=== PATIENT | male | born 1960 | race Caucasian/White ===

== ENCOUNTER 2017-01-30 16:14 | Inpatient (IN) | payer BC, MEDICAID, OTHER ==
[2017-01-30] MEDS ORDERED: Ketorolac 30 MG/ML SDV IVPUSH ONE (16:24)
[2017-01-30] MEDS ORDERED: Sodium Chloride 0.9% 1,000 ML IV ONE (16:24)
[2017-01-30] MEDS ORDERED: Ondansetron 4 MG/2 ML SDV IVPUSH ONE (16:24)
--- NOTE | 2017-01-30 16:40 | EDM.PDOC ---
<Alfred Reddy - Last Filed: 01/30/17 18:37> ED HPI GENERAL MEDICAL PROBLEM - General Chief Complaint: General Stated Complaint: PT HAS BACK PAIN Time Seen by Provider: 01/30/17 16:15 Source of Information: Reports: Patient History Limitations: Reports: No Limitations - History of Present Illness INITIAL COMMENTS - FREE TEXT/NARRATIVE: History of present illness: [56-year-old male settings with complaints of swelling to his back. 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 Past medical history: As per history of present illness and as reviewed below otherwise noncontributory. Surgical history: As per history of present illness and as reviewed below otherwise noncontributory. Social history: No reported history of drug or alcohol abuse. Family history: As per history of present illness and as reviewed below otherwise noncontributory. Physical exam: HEENT: Atraumatic, normocephalic, pupils reactive, negative for conjunctival pallor or scleral icterus, mucous membranes moist, throat clear, neck supple, nontender, trachea midline. Lungs: Coarse throughout on inspiration and expiration and tachypneic,, posterior aspect of chest wall tender along the suture line that is well-healed but without obvious swelling. Heart: S1S2, regular, negative for clicks, rubs, or JVD. Abdomen: Soft, nondistended, nontender. Negative for masses or hepatosplenomegaly. Negative for costovertebral tenderness. Pelvis: Stable nontender. Genitourinary: Deferred. Rectal: Deferred. Extremities: Atraumatic, negative for cords or calf pain. Neurovascular unremarkable. Neuro: Awake, alert, oriented. Cranial nerves II through XII unremarkable. Cerebellum unremarkable. Motor and sensory unremarkable throughout. Exam nonfocal. Patient is pleasant cooperative but somewhat cachectic Dr. [place] in ED to evaluate the patient and decision made that patient could be seen and treated here. Diagnostics: [Chest x-ray, CBC, CMP, lactic acid, blood culture, amylase, lipase, CTA] Therapeutics: [IV fluid, Zosyn] Impression: [Urinary infection, leukocytosis, cancer] Plan: [Admit] Definitive disposition and diagnosis as appropriate pending reevaluation and review of above. Right Upper Back Pain Score (Numeric/FACES): 6 - Related Data Allergies Allergy/AdvReac Type Severity Reaction Status Date / Time No Known Allergies Allergy Verified 01/30/17 16:21 Home Meds: Home Meds amLODIPine [Norvasc] 5 mg PO DAILY 04/26/14 [History] atorvaSTATin Calcium [Atorvastatin Calcium] 10 mg PO DAILY 04/26/14 [History] Aspirin 325 mg PO DAILY 05/27/16 [History] Acetaminophen [Tylenol] 500 mg PO ASDIRECTED 01/30/17 [History] Benzonatate PRN 01/30/17 [History] Calcium Carbonate [Tums] 01/30/17 [History] Calcium Carbonate/Vitamin D3 [Calcium 600-Vit D3 800 Tab] 1 tab PO DAILY [History] Docusate Sodium [Colace] 1 cap PO ASDIRECTED 01/30/17 [History] Dronabinol 5 cap PO DAILY 01/30/17 [History] Ferrous Sulfate, Dried [Iron] 65 mg PO BID 01/30/17 [History] Ondansetron HCl [Zofran] 8 mg PO Q6HR PRN 01/30/17 [History] Polyethylene Glycol 3350 [MiraLAX] 17 gm PO DAILY PRN 01/30/17 [History] Pregabalin [Lyrica] 75 mg PO BID 01/30/17 [History] Prochlorperazine [Compazine] 10 mg PO TID PRN 01/30/17 [History] oxyCODONE 5 mg PO Q3HR PRN 01/30/17 [History] oxyCODONE HCl [Oxycontin] 20 mg PO Q12HR 01/30/17 [History] Levofloxacin/Dextrose 5%-Water [Levaquin in D5W 750 MG/150 ML] 750 mg IV Q24H bag 01/31/17 [Rx] Pantoprazole [ProTONIX IV] 40 mg IVPUSH Q12H vial 01/31/17 [Rx] Sodium Chloride 0.9% [Normal Saline] 125 ml IV ASDIRECTED #0 bag 01/31/17 [Rx] Vancomycin [Vancocin] 1 gm IV Q8H adv 01/31/17 [Rx] Past Medical History HEENT History: Reports: Other (See Below) Other HEENT History: wears glasses Cardiovascular History: Reports: High Cholesterol, Hypertension, PVD, Other ( See Below) Respiratory History: Reports: Other (See Below) Other Respiratory History: 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) Gastrointestinal History: Reports: None Genitourinary History: Reports: None Musculoskeletal History: Reports: Fracture, Other (See Below) Other Musculoskeletal History: cracked bone in right wrist Neurological History: Reports: CVA, Other (See Below) Other Neuro History: stroke 3 yrs ago, peripheral vascular disease Psychiatric History: Reports: None Endocrine/Metabolic History: Reports: None Hematologic History: Reports: None Immunologic History: Reports: None Oncologic (Cancer) History: Reports: Lung Dermatologic History: Reports: None - Infectious Disease History Infectious Disease History: Reports: Chicken Pox, Mumps - Past Surgical History Cardiovascular Surgical History: Reports: Carotid Endarterectomy Musculoskeletal Surgical History: Reports: Carpal Tunnel Social & Family History - Family History Cardiac: Reports: Heart Failure Musculoskeletal: Reports: RA Endocrine/Metabolic: Reports: Other (See Below) Other Endocrine/Metabolic Family History: diabetes, type unknown Oncologic: Reports: Esophageal - Tobacco Use Smoking Status *Q: Current Some Day Smoker Years of Tobacco use: 40 Packs/Tins Daily: 1 Second Hand Smoke Exposure: Yes - Caffeine Use Caffeine Use: Reports: Soda - Alcohol Use Days Per Week of Alcohol Use: 5 Number of Drinks Per Day: 4 Total Drinks Per Week: 20 - Recreational Drug Use Recreational Drug Use: No Recreational Drug Type: Reports: Marijuana/Hashish Recreational Drug Use Frequency: Socially ED ROS GENERAL - Review of Systems Review Of Systems: See Below (See history of present illness) ED EXAM, GENERAL - Physical Exam Exam: See Below (See history of present illness) Course - Vital Signs Last Recorded V/S: Last Vital Signs Temp 37.2 C 01/31/17 11:22 Pulse 112 H 01/31/17 11:22 Resp 21 H 01/31/17 11:22 BP 111/66 01/31/17 11:22 Pulse Ox 98 01/31/17 11:22 - Orders/Labs/Meds Orders: Active Orders 24 hr Category Date Time Status Patient Status [ADT] Stat ADT 01/30/17 18:42 Active Ang Chest [CT] Stat Exams 01/30/17 17:55 Stop Req CULTURE BLOOD [BC] Stat Lab 01/30/17 17:46 Received CULTURE BLOOD [BC] Stat Lab 01/30/17 17:52 Received Blood Culture x2 Reflex Set [OM.PC] Stat Oth 01/30/17 17:38 Ordered Medication Orders Acetaminophen (Tylenol Extra Strength) 500 mg PO TID PRN PRN Reason: PAIN Acetaminophen (Tylenol) 650 mg PO Q6H PRN PRN Reason: Fever Last Admin: 01/31/17 10:46 Dose: 650 mg Admin: 01/31/17 01:19 Dose: 650 mg Albuterol (Proventil Neb Soln) 2.5 mg NEB Q2H PRN PRN Reason: Shortness Of Breath/wheezing Amlodipine Besylate (Norvasc) 5 mg PO DAILY COUNT INCLUDES THE [facility] Last Admin: 01/31/17 10:12 Dose: Aspirin (Aspirin) 325 mg PO DAILY COUNT INCLUDES THE [facility] Last Admin: 01/31/17 10:10 Dose: Atorvastatin Calcium (Lipitor) 10 mg PO DAILY COUNT INCLUDES THE [facility] Last Admin: 01/31/17 10:12 Dose: Calcium Carbonate (Caltrate 600+D 1500 Mg-400 Units) 1 tab PO DAILY COUNT INCLUDES THE [facility] Last Admin: 01/31/17 10:11 Dose: Docusate Sodium (Colace) 300 mg PO DAILY PRN PRN Reason: Constipation Dronabinol (Marinol) 5 mg PO DAILY COUNT INCLUDES THE [facility] Last Admin: 01/31/17 10:12 Dose: Enoxaparin Sodium (Lovenox) 40 mg SUBCUT DAILY COUNT INCLUDES THE [facility] Last Admin: 01/31/17 10:11 Dose: Admin: 01/30/17 20:12 Dose: 40 mg Ferrous Sulfate (Ferrous Sulfate) 325 mg PO BID COUNT INCLUDES THE [facility] Last Admin: 01/31/17 10:11 Dose: Admin: 01/30/17 20:12 Dose: 325 mg Hydromorphone HCl (Dilaudid) 1 mg IVPUSH Q3H PRN PRN Reason: Pain Last Admin: 01/31/17 09:30 Dose: 1 mg Admin: 01/31/17 05:20 Dose: 1 mg Levofloxacin/Dextrose 750 mg/ (Premix) 150 mls @ 100 mls/hr IV Q24H COUNT INCLUDES THE [facility] Last Admin: 01/30/17 20:12 Dose: 100 mls/hr Piperacillin Sod/Tazobactam (Sod 3.375 gm/ Sodium Chloride) 50 mls @ 100 mls/ hr IV Q6H COUNT INCLUDES THE [facility] Last Admin: 01/31/17 06:43 Dose: 100 mls/hr Infusion: 01/31/17 01:21 Dose: 100 mls/hr Admin: 01/31/17 00:51 Dose: 100 mls/hr Vancomycin HCl 1 gm/ Sodium (Chloride) 250 mls @ 166 mls/hr IV Q8H COUNT INCLUDES THE [facility] Last Admin: 01/31/17 05:23 Dose: 166 mls/hr Infusion: 01/31/17 00:48 Dose: 166 mls/hr Admin: 01/30/17 23:17 Dose: 166 mls/hr Sodium Chloride (Normal Saline) 1,000 mls @ 125 mls/hr IV ASDIRECTED COUNT INCLUDES THE [facility] Last Admin: 01/31/17 10:22 Dose: 125 mls/hr Infusion: 01/31/17 10:14 Dose: 125 mls/hr Admin: 01/31/17 02:14 Dose: 125 mls/hr Infusion: 01/31/17 02:14 Dose: 125 mls/hr Admin: 01/30/17 20:13 Dose: 125 mls/hr Pantoprazole Sodium 40 mg/ (Sodium Chloride) 10 mls @ 300 mls/hr IVPUSH Q12H COUNT INCLUDES THE [facility] Last Admin: 01/31/17 09:47 Dose: 300 mls/hr Infusion: 01/30/17 21:02 Dose: 300 mls/hr Admin: 01/30/17 21:00 Dose: 300 mls/hr Ondansetron HCl (Zofran Odt) 4 mg PO Q4H PRN PRN Reason: nausea, able to take PO Oxycodone HCl (Oxycontin) 20 mg PO Q12HR COUNT INCLUDES THE [facility] Last Admin: 01/31/17 10:12 Dose: Admin: 01/30/17 20:12 Dose: 20 mg Oxycodone HCl (Oxycodone) 5 mg PO Q3HR PRN PRN Reason: Pain Last Admin: 01/31/17 06:42 Dose: 5 mg Admin: 01/31/17 03:23 Dose: 5 mg Polyethylene Glycol (Miralax) 17 gm PO DAILY COUNT INCLUDES THE [facility] Pregabalin (Lyrica) 75 mg PO BID COUNT INCLUDES THE [facility] Last Admin: 01/31/17 10:12 Dose: Prochlorperazine Maleate (Compazine) 10 mg PO TID PRN PRN Reason: Nausea Vancomycin HCl (Pharmacy To Dose - Vancomycin) 1 dose .XX ASDIRECTED COUNT INCLUDES THE [facility] Zaleplon (Sonata) 10 mg PO BEDTIME CARTER Last Admin: 01/30/17 21:01 Dose: 10 mg Labs: Laboratory Tests 01/30/17 01/30/17 01/30/17 Range/Units 16:50 16:50 16:50 WBC 23.31 H (4.0-11.0) K/uL RBC 3.08 L (4.50-5.90) M/uL Hgb 7.8 L (13.0-17.0) g/dL Hct 24.2 L (38.0-50.0) % MCV 78.6 L (80.0-98.0) fL MCH 25.3 L (27.0-32.0) pg MCHC 32.2 (31.0-37.0) g/dL RDW Std Deviation 53.9 (28.0-62.0) fl RDW Coeff of An 19 H (11.0-15.0) % Plt Count 401 H (150-400) K/uL MPV 8.50 (7.40-12.00) fL Add Manual Diff YES Neutrophils % (Manual) 76 (48.0-80.0) % Band Neutrophils % 15 % Lymphocytes % (Manual) 6 L (16.0-40.0) % Monocytes % (Manual) 3 (0.0-15.0) % Nucleated RBC % 0.0 /100WBC Absolute Seg Neuts 17.7 Band Neutrophils # 3.5 Lymphocytes # (Manual) 1.4 Monocytes # (Manual) 0.7 Nucleated RBCs # 0 K/uL Absolute Retic (20-80) K/uL Percent Retic (0.5-1.5) % Immature Retic Fraction % Lactate 2.1 H (0.20-2.00) mmol/L Sodium 126 L (136-146) mmol/L Potassium 3.6 (3.5-5.1) mmol/L Chloride 87 L (98-110) mmol/L Carbon Dioxide 27 (21-31) mmol/L BUN 8 (6.0-23.0) mg/dL Creatinine 0.6 (0.6-1.5) mg/dL Est Cr Clr Drug Dosing 111.07 mL/min Estimated GFR (MDRD) > 60.0 ml/min Glucose 151 H (60-110) mg/dL Calcium 8.2 L (8.8-10.8) mg/dL Iron (50-170) ug/dL TIBC (273-456) ug/dL % Saturation (20-55) % Total Bilirubin 0.6 (0.1-1.5) mg/dL AST 56 H (5-40) IU/L ALT 52 (8-54) IU/L Alkaline Phosphatase 404 H (40-150) Total Protein 6.3 (6.0-8.0) g/dL Albumin 2.8 L (3.5-5.0) g/dL Globulin 3.5 (2.0-3.5) g/dL Albumin/Globulin Ratio 0.8 L (1.3-2.8) Amylase 17 (10-90) U/L Lipase 8 (7-80) U/L 01/30/17 01/30/17 Range/Units 16:50 16:50 WBC (4.0-11.0) K/uL RBC 3.02 L (4.50-5.90) M/uL Hgb (13.0-17.0) g/dL Hct (38.0-50.0) % MCV (80.0-98.0) fL MCH (27.0-32.0) pg MCHC (31.0-37.0) g/dL RDW Std Deviation (28.0-62.0) fl RDW Coeff of An (11.0-15.0) % Plt Count (150-400) K/uL MPV (7.40-12.00) fL Add Manual Diff Neutrophils % (Manual) (48.0-80.0) % Band Neutrophils % % Lymphocytes % (Manual) (16.0-40.0) % Monocytes % (Manual) (0.0-15.0) % Nucleated RBC % /100WBC Absolute Seg Neuts Band Neutrophils # Lymphocytes # (Manual) Monocytes # (Manual) Nucleated RBCs # K/uL Absolute Retic 53.20 (20-80) K/uL Percent Retic 1.8 H (0.5-1.5) % Immature Retic Fraction 12 % Lactate (0.20-2.00) mmol/L Sodium (136-146) mmol/L Potassium (3.5-5.1) mmol/L Chloride (98-110) mmol/L Carbon Dioxide (21-31) mmol/L BUN (6.0-23.0) mg/dL Creatinine (0.6-1.5) mg/dL Est Cr Clr Drug Dosing mL/min Estimated GFR (MDRD) ml/min Glucose (60-110) mg/dL Calcium (8.8-10.8) mg/dL Iron 13 L (50-170) ug/dL TIBC 135 L (273-456) ug/dL % Saturation 9.63 L (20-55) % Total Bilirubin (0.1-1.5) mg/dL AST (5-40) IU/L ALT (8-54) IU/L Alkaline Phosphatase (40-150) Total Protein (6.0-8.0) g/dL Albumin (3.5-5.0) g/dL Globulin (2.0-3.5) g/dL Albumin/Globulin Ratio (1.3-2.8) Amylase (10-90) U/L Lipase (7-80) U/L Meds: Medications Generic Name Dose Route Start Last Admin Trade Name Freq PRN Reason Stop Dose Admin Acetaminophen 500 mg 01/31/17 14:00 Tylenol Extra Strength PO TID PRN PAIN Acetaminophen 650 mg 01/31/17 00:34 01/31/17 10:46 Tylenol PO 650 mg Q6H PRN Administration Fever Albuterol 2.5 mg 01/30/17 18:53 Proventil Neb Soln NEB Q2H PRN Shortness Of Breath/wheezing Amlodipine Besylate 5 mg 01/31/17 09:00 01/31/17 10:12 Norvasc PO Not Given DAILY COUNT INCLUDES THE [facility] Aspirin 325 mg 01/31/17 09:00 01/31/17 10:10 Aspirin PO Not Given DAILY COUNT INCLUDES THE [facility] Atorvastatin Calcium 10 mg 01/31/17 09:00 01/31/17 10:12 Lipitor PO Not Given DAILY COUNT INCLUDES THE [facility] Calcium Carbonate 1 tab 01/31/17 09:00 01/31/17 10:11 Caltrate 600+D 1500 Mg-400 Units PO Not Given DAILY COUNT INCLUDES THE [facility] Docusate Sodium 300 mg 01/31/17 09:00 Colace PO DAILY PRN Constipation Dronabinol 5 mg 01/31/17 09:00 01/31/17 10:12 Marinol PO Not Given DAILY COUNT INCLUDES THE [facility] Enoxaparin Sodium 40 mg 01/30/17 19:00 01/31/17 10:11 Lovenox SUBCUT Not Given DAILY COUNT INCLUDES THE [facility] Ferrous Sulfate 325 mg 01/30/17 21:00 01/31/17 10:11 Ferrous Sulfate PO Not Given BID COUNT INCLUDES THE [facility] Hydromorphone HCl 1 mg 01/31/17 05:02 01/31/17 09:30 Dilaudid IVPUSH 1 mg Q3H PRN Administration Pain Levofloxacin/Dextrose 750 mg/ 150 mls @ 100 mls/hr 01/30/17 20:00 01/30/17 20 :12 Premix IV 100 mls/hr Q24H CARTER Administration Piperacillin Sod/Tazobactam 50 mls @ 100 mls/hr 01/31/17 01:00 01/31/17 06:43 Sod 3.375 gm/ Sodium Chloride IV 100 mls/hr Q6H CARTER Administration Vancomycin HCl 1 gm/ Sodium 250 mls @ 166 mls/hr 01/30/17 22:00 01/31/17 05: 23 Chloride IV 166 mls/hr Q8H CARTER Administration Sodium Chloride 1,000 mls @ 125 mls/hr 01/30/17 19:45 01/31/17 10:22 Normal Saline IV 125 mls/hr ASDIRECTED CARTER Administration Pantoprazole Sodium 40 mg/ 10 mls @ 300 mls/hr 01/30/17 20:00 01/31/17 09:47 Sodium Chloride IVPUSH 300 mls/hr Q12H CARTER Administration Ondansetron HCl 4 mg 01/30/17 18:53 Zofran Odt PO Q4H PRN nausea, able to take PO Oxycodone HCl 20 mg 01/30/17 21:00 01/31/17 10:12 Oxycontin PO Not Given Q12HR CARTER Oxycodone HCl 5 mg 01/30/17 22:19 01/31/17 06:42 Oxycodone PO 5 mg Q3HR PRN Administration Pain Polyethylene Glycol 17 gm 02/01/17 09:00 Miralax PO DAILY COUNT INCLUDES THE [facility] Pregabalin 75 mg 01/31/17 09:00 01/31/17 10:12 Lyrica PO Not Given BID COUNT INCLUDES THE [facility] Prochlorperazine Maleate 10 mg 01/31/17 09:57 Compazine PO TID PRN Nausea Vancomycin HCl 1 dose 01/30/17 19:15 Pharmacy To Dose - Vancomycin .XX ASDIRECTED CARTER Zaleplon 10 mg 01/30/17 21:00 01/30/17 21:01 Sonata PO 10 mg BEDTIME CARTER Administration Discontinued Medications Generic Name Dose Route Start Last Admin Trade Name Yolanda PRN Reason Stop Dose Admin Sodium Chloride 1,000 mls @ 999 mls/hr 01/30/17 16:24 01/30/17 16:35 Normal Saline IV 01/30/17 17:24 999 mls/hr STAT ONE Administration Piperacillin Sod/Tazobactam 50 mls @ 100 mls/hr 01/30/17 18:34 01/30/17 18:41 Sod 3.375 gm/ Sodium Chloride IV 01/30/17 19:03 100 mls/hr ONETIME ONE Administration Sodium Chloride 1,000 mls @ 999 mls/hr 01/31/17 00:45 01/31/17 00:57 Normal Saline IV 01/31/17 01:46 999 mls/hr ASDIRECTED CARTER Administration Iopamidol 50 ml 01/30/17 22:18 01/30/17 22:19 Isovue Multipack-370 (76%) IVPUSH 01/30/17 22:19 50 ml ONETIME STA Administration Ketorolac Tromethamine 30 mg 01/30/17 16:24 01/30/17 16:35 Toradol IVPUSH 01/30/17 16:25 30 mg ONETIME ONE Administration Ondansetron HCl 4 mg 01/30/17 16:24 01/30/17 16:35 Zofran IVPUSH 01/30/17 16:25 4 mg ONETIME ONE Administration Departure - Departure Time of Disposition: 18:41 Disposition: Admitted As Inpatient 64 Condition: Good Clinical Impression: Cavitating mass in right upper lung lobe - Discharge Information <Sarah Dill - Last Filed: 01/31/17 11:28> ED HPI GENERAL MEDICAL PROBLEM - History of Present Illness INITIAL COMMENTS - FREE TEXT/NARRATIVE: Please add to the impression--- lung infection/abnormal CXR with h/o recent surgery and lung cancer Right Upper Back Pain Score (Numeric/FACES): 9 Chest Pain Score (Numeric/FACES): 9
[2017-01-30 17:23] LABS: CHLORIDE,CL 87 mmol/L (98-110); SODIUM,NA 126 mmol/L (136-146)
[2017-01-30] MEDS ORDERED: Piperacillin/Tazobactam 3.375 GM in Sodium Chloride 0.9% 50 ML IV ONE (18:34)
[2017-01-30] MEDS ORDERED: Ondansetron 4 MG Tab.DIS PO PRN (18:53)
[2017-01-30] MEDS ORDERED: Albuterol 0.083% 2.5 MG/3 ML Neb Soln NEB PRN (18:53)
--- NOTE | 2017-01-30 19:18 | PCM.HP ---
H&P History of Present Illness - General Date of Service: 01/30/17 Admit Problem/Dx: Sepsis Source of Information: Patient, Provider History Limitations: Reports: No Limitations - History of Present Illness Initial Comments - Free Text/Narative: 56 year old male with squamous cell lung cancer being followed by Dr. Santana, oncologist, that is being admitted with sepsis. Patient was diagnosed with lung cancer in May 2016 and has undergone both chemotherapy and radiation. He is still undergoing chemotherapy with his last treatment being 4 weeks ago. He usually does chemo every 3 weeks but missed his treatment last week secondary to not feeling well. He is supposed to have another round of chemo this monday. He underwent a right sided thoracotomy in October of this year but did not have any part of his lung removed as he was told that the cancer was too advanced. He states that 2 weeks prior to having the thoracotomy that he underwent a lung biopsy and was told that they "didnt find anything". He presented to the ER today with increased pain to the thoracotomy site. His daughter encouraged him to come in as she was worried that the site may be infected. The patient has been taking 20mg Oxycodone for pain relief but states that he had to take 4 tabs this am to help relieve the right sided back pain. At its worst the pain is rated as 8/10 and he currently rates the pain as 3/10. He denies having any shortness of breath, chest pain, palpitations, cough, wheezing, abdominal pain, N/V/C/D, or fever. He has been tolerating oral intake. He notes dark stools but thinks this is due to his daily iron. He has never had a GI bleed, ulcers and denies any eliana blood in the stool or urine or active sites of bleeding. ER course: WBC of 23,000, lactate 2.1, Na 126, he was tachycardic at 124 and his respiratory rate was 33. CXR showed volum loss with consolidation and masslike appearance of the right upper lobe and a 2.9cm cavitary lesion with an air- fluid level in the right lung apex. Given onetime dose of Zosyn and IM dose of Toradol. Previous cxr make no mention of the size of this cavitary lesion. Right Upper Back Pain Score (Numeric/FACES): 6 - Related Data Allergies/Adverse Reactions: Allergies Allergy/AdvReac Type Severity Reaction Status Date / Time No Known Allergies Allergy Verified 01/30/17 16:21 Home Medications: Home Meds amLODIPine [Norvasc] 5 mg PO DAILY 04/26/14 [History] atorvaSTATin Calcium [Atorvastatin Calcium] 10 mg PO DAILY 04/26/14 [History] Aspirin 325 mg PO DAILY 05/27/16 [History] Acetaminophen [Tylenol] 500 mg PO ASDIRECTED 01/30/17 [History] Aspercreme With Lidocaine 4% 01/30/17 [History] Benzonatate PRN 01/30/17 [History] Calcium Carbonate [Tums] 01/30/17 [History] Calcium Carbonate/Vitamin D3 [Calcium 600-Vit D3 800 Tab] 1 tab PO DAILY [History] Docusate Sodium [Colace] 1 cap PO ASDIRECTED 01/30/17 [History] Dronabinol 1 cap PO DAILY 01/30/17 [History] Ferrous Sulfate, Dried [Iron] 65 mg PO BID 01/30/17 [History] Lidocaine Patch 5% 01/30/17 [History] Ondansetron HCl [Zofran] PRN 01/30/17 [History] Polyethylene Glycol 3350 [MiraLAX] ASDIRECTED 01/30/17 [History] Pregabalin [Lyrica] BID 01/30/17 [History] Prochlorperazine [Compazine] PRN 01/30/17 [History] Zolpidem [Ambien] 1 tab PO BEDTIME 01/30/17 [History] oxyCODONE PRN 01/30/17 [History] oxyCODONE HCl [Oxycontin] 1 tab PO Q12HR 01/30/17 [History] Past Medical History HEENT History: Reports: Other (See Below) Other HEENT History: wears glasses Cardiovascular History: Reports: High Cholesterol, Hypertension, PVD, Other ( See Below) Respiratory History: Reports: Other (See Below) Other Respiratory History: 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) Gastrointestinal History: Reports: None Genitourinary History: Reports: None Musculoskeletal History: Reports: Fracture, Other (See Below) Other Musculoskeletal History: cracked bone in right wrist Neurological History: Reports: CVA, Other (See Below) Other Neuro History: stroke 3 yrs ago, peripheral vascular disease Psychiatric History: Reports: None Endocrine/Metabolic History: Reports: None Hematologic History: Reports: None Immunologic History: Reports: None Oncologic (Cancer) History: Reports: Lung Dermatologic History: Reports: None - Infectious Disease History Infectious Disease History: Reports: Chicken Pox, Mumps - Past Surgical History Cardiovascular Surgical History: Reports: Carotid Endarterectomy Musculoskeletal Surgical History: Reports: Carpal Tunnel Social & Family History - Family History Cardiac: Reports: Heart Failure Musculoskeletal: Reports: RA Endocrine/Metabolic: Reports: Other (See Below) Other Endocrine/Metabolic Family History: diabetes, type unknown Oncologic: Reports: Esophageal - Tobacco Use Smoking Status *Q: Current Some Day Smoker Years of Tobacco use: 40 Packs/Tins Daily: 1 Second Hand Smoke Exposure: Yes - Caffeine Use Caffeine Use: Reports: Soda - Alcohol Use Days Per Week of Alcohol Use: 5 Number of Drinks Per Day: 4 Total Drinks Per Week: 20 - Recreational Drug Use Recreational Drug Use: No Recreational Drug Type: Reports: Marijuana/Hashish Recreational Drug Use Frequency: Socially H&P Review of Systems - Review of Systems: Review Of Systems: See Below General: Reports: No Symptoms HEENT: Reports: No Symptoms Pulmonary: Reports: No Symptoms Cardiovascular: Reports: No Symptoms Gastrointestinal: Reports: Other (dark stools) Genitourinary: Reports: No Symptoms Musculoskeletal: Reports: Other (right sided back pain at thoractomy site) Skin: Reports: No Symptoms Psychiatric: Reports: No Symptoms Neurological: Reports: No Symptoms Hematologic/Lymphatic: Reports: No Symptoms Immunologic: Reports: No Symptoms Exam - Exam Exam: See Below - Vital Signs Vital Signs: Last Vital Signs Temp 98.9 F 01/30/17 16:22 Pulse 128 H 01/30/17 16:22 Resp 30 H 01/30/17 16:22 BP 133/77 01/30/17 16:22 Pulse Ox 98 01/30/17 16:22 Weight: 129 lb - Exam General: Alert, Oriented, Cooperative HEENT: Conjunctiva Clear, Hearing Intact, Mucosa Moist & [place], Posterior Pharynx Clear Neck: Supple, Trachea Midline, 2 Lungs: Normal Respiratory Effort, Other (coarse breath sounds in the upper and lower lobes on the right side) Cardiovascular: Regular Rhythm, Tachycardia GI/Abdominal Exam: Normal Bowel Sounds, Soft, Non-Tender, No Organomegaly, No Distention, No Abnormal Bruit, No Mass Back Exam: Other (large incision noted on the right side from thoracotomy. Slightly erythematous but not warm to palpation or tender to palpation.) Extremities: Normal Inspection, Normal Range of Motion, Non-Tender, No Pedal Edema, Normal Capillary Refill Peripheral Pulses: 2+: Radial (L), Radial (R), Posterior Tibial (L), Posterior Tibial (R) Skin: Warm, Dry, Intact Neuro Extensive - Mental Status: Alert, Oriented x3, Normal Mood/Affect, Normal Cognition Psychiatric: Alert, Normal Affect, Normal Mood - Patient Data Result Diagrams: 01/30/17 16:50 01/30/17 16:50 *Q Meaningful Use (ADM) - VTE *Q VTE Criteria *Q: - Stroke *Q Stroke Criteria *Q: - AMI *Q AMI Criteria *Q: - Problem List (1) Cavitating mass in right upper lung lobe SNOMED Code(s): 18203186 ICD Code: J98.4 - OTHER DISORDERS OF LUNG Status: Acute Current Visit: Yes (2) Hyponatremia SNOMED Code(s): 82490754 ICD Code: E87.1 - HYPO-OSMOLALITY AND HYPONATREMIA Status: Acute Current Visit: Yes (3) Sepsis SNOMED Code(s): 96631371 ICD Code: A41.9 - SEPSIS, UNSPECIFIED ORGANISM Status: Acute Current Visit: Yes Problem List Initiated/Reviewed/Updated: Yes Orders Last 24hrs: Active Orders 24 hr Category Date Time Status Antiembolic Devices [RC] PER UNIT ROUTINE Care 01/30/17 18:57 Ordered Height and Weight [RC] DAILY Care 01/30/17 18:53 Ordered Intake and Output [RC] QSHIFT Care 01/30/17 18:53 Ordered Notify Provider Vital Signs [RC] ASDIRECTED Care 01/30/17 18:53 Ordered Oxygen Therapy [RC] PRN Care 01/30/17 18:53 Ordered Pulse Oximetry [RC] PRN Care 01/30/17 18:53 Ordered RT Aerosol Therapy [RC] ASDIRECTED Care 01/30/17 18:57 Ordered Up With Assistance [RC] ASDIRECTED Care 01/30/17 18:53 Ordered VTE/DVT Education [RC] PER UNIT ROUTINE Care 01/30/17 18:53 Ordered Vital Signs [RC] Q4H Care 01/30/17 18:53 Ordered Heart Healthy Diet [DIET] Diet 01/30/17 Breakfast Ordered Chest w Cont [CT] Routine Exams 01/31/17 07:00 Ordered BASIC METABOLIC PANEL,BMP [CHEM] AM Lab 01/31/17 05:11 Ordered BASIC METABOLIC PANEL,BMP [CHEM] AM Lab 02/01/17 05:11 Ordered BASIC METABOLIC PANEL,BMP [CHEM] AM Lab 02/02/17 05:11 Ordered CBC WITH AUTO DIFF [HEME] AM Lab 01/31/17 05:11 Ordered CBC WITH AUTO DIFF [HEME] AM Lab 02/01/17 05:11 Ordered CBC WITH AUTO DIFF [HEME] AM Lab 02/02/17 05:11 Ordered LACTIC ACID,WHOLE BLOOD [BG] Q6H Lab 01/30/17 23:00 Ordered LACTIC ACID,WHOLE BLOOD [BG] Q6H Lab 01/31/17 05:00 Ordered URINALYSIS W/MICROSCOPIC [UA W/MICROSCOPIC] [URIN] Lab 01/30/17 19:00 Uncollected Routine Acetaminophen [Tylenol] Med 01/30/17 19:00 Ordered 500 mg PO ASDIRECTED Albuterol [Proventil Neb Soln] Med 01/30/17 18:53 Ordered 2.5 mg NEB Q2H PRN Aspirin Med 01/31/17 09:00 Ordered 325 mg PO DAILY Benzonatate [Tessalon Perles] Med 01/30/17 18:57 Unverified DOSE UNIT RTE FREQ PRN Calcium Carbonate [Tums] Med 01/30/17 19:00 Unverified DOSE UNIT RTE FREQ Calcium Carbonate/Vitamin D3 [Calcium 600-Vit D3 800 Med 01/31/17 09:00 Ordered Tab] 1 tab PO DAILY Docusate Sodium [Colace] Med 01/30/17 19:00 Ordered 1 cap PO ASDIRECTED Dronabinol [Dronabinol] Med 01/31/17 09:00 Ordered 1 cap PO DAILY Enoxaparin [Lovenox] Med 01/30/17 19:00 Ordered 40 mg SUBCUT DAILY Ferrous Sulfate, Dried [Iron] Med 01/30/17 21:00 Ordered 65 mg PO BID Levofloxacin/Dextrose 5%-Water [Levaquin in D5W 750 MG/ Med 01/30/17 19:15 Ordered 150 ML] 750 mg Premix Bag 1 bag IV Q24H Ondansetron [Zofran ODT] Med 01/30/17 18:53 Ordered 4 mg PO Q4H PRN Piperacillin/Tazobactam [Piperacil-Tazobact] 3.375 gm Med 01/30/17 19:15 Ordered Sodium Chloride 0.9% [Normal Saline] 50 ml IV Q6H Polyethylene Glycol 3350 [MiraLAX] Med 01/30/17 19:00 Unverified DOSE UNIT RTE FREQ Pregabalin Med 01/30/17 21:00 Unverified DOSE UNIT RTE FREQ Prochlorperazine [Compazine] Med 01/30/17 18:57 Unverified DOSE UNIT RTE FREQ PRN Vancomycin Pharmacy to Dose [Pharmacy to Dose - Med 01/30/17 19:15 Ordered Vancomycin] 1 dose .XX ASDIRECTED Zolpidem Med 01/30/17 21:00 Ordered 1 tab PO BEDTIME amLODIPine [Norvasc] Med 01/31/17 09:00 Ordered 5 mg PO DAILY atorvaSTATin [Lipitor] Med 01/31/17 09:00 Ordered 10 mg PO DAILY oxyCODONE Med 01/30/17 18:57 Unverified DOSE UNIT RTE FREQ PRN oxyCODONE ER [OxyCONTIN] Med 01/30/17 21:00 Ordered 1 tab PO Q12HR Sequential Compression Device [OM.PC] Per Unit Routine Oth 01/30/17 18:54 Ordered Medication Orders Acetaminophen (Tylenol) 500 mg PO ASDIRECTED [facility] Albuterol (Proventil Neb Soln) 2.5 mg NEB Q2H PRN PRN Reason: Shortness Of Breath/wheezing Amlodipine Besylate (Norvasc) 5 mg PO DAILY [facility] Aspirin (Aspirin) 325 mg PO DAILY [facility] Atorvastatin Calcium (Lipitor) 10 mg PO DAILY [facility] Docusate Sodium (Colace) mg PO ASDIRECTED [facility] Enoxaparin Sodium (Lovenox) 40 mg SUBCUT DAILY [facility] Levofloxacin/Dextrose 750 mg/ (Premix) 150 mls @ 100 mls/hr IV Q24H [facility] Piperacillin Sod/Tazobactam (Sod 3.375 gm/ Sodium Chloride) 50 mls @ 100 mls/ hr IV Q6H [facility] Non-Formulary Medication (Calcium Carbonate/Vitamin D3 [Calcium 600-Vit D3 800 Tab]) 1 tab PO DAILY [facility] Non-Formulary Medication (Dronabinol [Dronabinol]) 1 cap PO DAILY [facility] Non-Formulary Medication (Ferrous Sulfate, Dried [Iron]) 65 mg PO BID [facility] Ondansetron HCl (Zofran Odt) 4 mg PO Q4H PRN PRN Reason: nausea, able to take PO Oxycodone HCl (Oxycontin) 20 mg PO Q12HR [facility] Vancomycin HCl (Pharmacy To Dose - Vancomycin) 1 dose .XX ASDIRECTED [facility] Zaleplon (Sonata) 10 mg PO BEDTIME [facility] Assessment/Plan Comment:: 56 year old male with sepsis with a current diagnosis of squamous cell lung cancer requiring chemotherapy. 1. Sepsis in setting of recent thoracotomy and current diagnosis of squamous cell lung cancer: -WBC 23,000, lactate 2.1 with tachycardia and tachypnea. Repeat lactate q6hrs until lactate <2. Repeat CBC in am. -blood cultures pending -Broad spectrum abx (vanc, zosyn, levaquin) -CXR shows 2.9cm cavitary lesion with air-fluid level in right lung apex. Also 4.1cm mass like lesion in suprahilar region. Chest CT in November 2016 showed grossly stable right suprahilar mass extending to the hilum, right posterior thoracotomy changes with a small residual amount of pleural air. No acute findings. Chest CT ordered and pending. -Brain MRI in september 2016 showed no metastasis. Right sided thoracotomy done at [place]. -home medications resumed. -NS 125cc/hr 2. Hyponatremia: -NS 125cc/hr. re-check BMP in am 3. Dark stools with Anemia: -protonix drip -hemoccult pending -iron studies pending -unsure if pt has had a colonoscopy.
[2017-01-30] MEDS ORDERED: Levofloxacin/Dextrose 5%-Water 750 MG in Premix Bag 1 BAG IV SCH (20:00)
[2017-01-30] MEDS: oxyCODONE ER 20 MG TAB.ER PO SCH (20:12)
[2017-01-30] MEDS: Enoxaparin 40 MG/0.4 ML Syringe SUBCUT SCH (20:12)
[2017-01-30] MEDS: Ferrous Sulfate 325 MG Tab PO SCH (20:12)
[2017-01-30] MEDS: Sodium Chloride 0.9% 1,000 ML IV SCH (20:13)
[2017-01-30] MEDS: Pantoprazole 40 MG in Sodium Chloride 0.9% 10 ML IVPUSH SCH (21:00)
[2017-01-30] MEDS ORDERED: Iopamidol 755 MG/ML 500 ML Multipack Bottle IVPUSH STA (22:18)
[2017-01-31] MEDS ORDERED: Sodium Chloride 0.9% 1,000 ML IV SCH (00:45)
[2017-01-31] MEDS: Piperacillin/Tazobactam 3.375 GM in Sodium Chloride 0.9% 50 ML IV SCH ×2 (00:51→06:43)
[2017-01-31] MEDS: Acetaminophen 325 MG Tab PO PRN ×2 (01:19→10:46)
[2017-01-31] MEDS: Sodium Chloride 0.9% 1,000 ML IV SCH ×2 (02:14→10:22)
[2017-01-31] MEDS: oxyCODONE 5 MG Tab PO PRN ×2 (03:23→06:42)
[2017-01-31] MEDS: HYDROmorphone 1 MG/ML Syringe IVPUSH PRN ×2 (05:20→09:30)
[2017-01-31 05:49] LABS: CHLORIDE,CL 93 mmol/L (98-110); SODIUM,NA 125 mmol/L (136-146)
--- NOTE | 2017-01-31 08:34 | PCM.CONS ---
H&P History of Present Illness - General Date of Service: 01/31/17 Admit Problem/Dx: Patient is a 56-year-old gentleman who was admitted through the emergency room late last night with fever, leukocytosis, productive cough, and a right posterior lateral chest wall mass. This gentleman was diagnosed with a lung cancer in May 2016. He has been treated with chemoradiotherapy. He was seen at the [facility] in October of this year and underwent a right posterolateral thoracotomy. According to the patient the tumor was involving the great vessels and they were unable to resect the right upper lobe. Patient relates he was told this is a non-small cell carcinoma. Source of Information: Patient History Limitations: Reports: No Limitations - History of Present Illness Symptom Onset Date: 01/30/17 Duration of Symptoms: Reports: Day(s): Location: Reports: Chest Quality: Reports: Pressure Severity: Moderate Improves with: Reports: Rest Worsens with: Reports: None Associated Symptoms: Reports: cough w sputum, Fever/Chills, Malaise, Shortness of Breath, Weakness Right Upper Back Pain Score (Numeric/FACES): 6 - Related Data Allergies/Adverse Reactions: Allergies Allergy/AdvReac Type Severity Reaction Status Date / Time No Known Allergies Allergy Verified 01/30/17 16:21 Home Medications: Home Meds amLODIPine [Norvasc] 5 mg PO DAILY 04/26/14 [History] atorvaSTATin Calcium [Atorvastatin Calcium] 10 mg PO DAILY 04/26/14 [History] Aspirin 325 mg PO DAILY 05/27/16 [History] Acetaminophen [Tylenol] 500 mg PO ASDIRECTED 01/30/17 [History] Aspercreme With Lidocaine 4% 01/30/17 [History] Benzonatate PRN 01/30/17 [History] Calcium Carbonate [Tums] 01/30/17 [History] Calcium Carbonate/Vitamin D3 [Calcium 600-Vit D3 800 Tab] 1 tab PO DAILY [History] Docusate Sodium [Colace] 1 cap PO ASDIRECTED 01/30/17 [History] Dronabinol 1 cap PO DAILY 01/30/17 [History] Ferrous Sulfate, Dried [Iron] 65 mg PO BID 01/30/17 [History] Lidocaine Patch 5% 01/30/17 [History] Ondansetron HCl [Zofran] Q6HR PRN 01/30/17 [History] Polyethylene Glycol 3350 [MiraLAX] ASDIRECTED 01/30/17 [History] Pregabalin [Lyrica] 75 mg PO BID 01/30/17 [History] Prochlorperazine [Compazine] PRN 01/30/17 [History] Zolpidem [Ambien] 1 tab PO BEDTIME 01/30/17 [History] oxyCODONE 5 mg PO Q3HR PRN 01/30/17 [History] oxyCODONE HCl [Oxycontin] 1 tab PO Q12HR 01/30/17 [History] Past Medical History HEENT History: Reports: Other (See Below) Other HEENT History: wears glasses Cardiovascular History: Reports: High Cholesterol, Hypertension, PVD, Other ( See Below) Respiratory History: Reports: Other (See Below) Other Respiratory History: 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) Gastrointestinal History: Reports: None Genitourinary History: Reports: None Musculoskeletal History: Reports: Fracture, Other (See Below) Other Musculoskeletal History: cracked bone in right wrist Neurological History: Reports: CVA, Other (See Below) Other Neuro History: stroke 3 yrs ago, peripheral vascular disease Psychiatric History: Reports: None Endocrine/Metabolic History: Reports: None Hematologic History: Reports: None Immunologic History: Reports: None Oncologic (Cancer) History: Reports: Lung Dermatologic History: Reports: None - Infectious Disease History Infectious Disease History: Reports: Chicken Pox, Mumps - Past Surgical History Cardiovascular Surgical History: Reports: Carotid Endarterectomy Musculoskeletal Surgical History: Reports: Carpal Tunnel Social & Family History - Family History Family Medical History: Noncontributory Cardiac: Reports: Heart Failure Musculoskeletal: Reports: RA Endocrine/Metabolic: Reports: Other (See Below) Other Endocrine/Metabolic Family History: diabetes, type unknown Oncologic: Reports: Esophageal - Tobacco Use Smoking Status *Q: Current Some Day Smoker Years of Tobacco use: 40 Packs/Tins Daily: 1 Used Tobacco, but Quit: No Second Hand Smoke Exposure: Yes - Caffeine Use Caffeine Use: Reports: Soda - Alcohol Use Days Per Week of Alcohol Use: 5 Number of Drinks Per Day: 4 Total Drinks Per Week: 20 - Recreational Drug Use Recreational Drug Use: No Recreational Drug Type: Reports: Marijuana/Hashish Recreational Drug Use Frequency: Socially H&P Review of Systems - Review of Systems: Review Of Systems: See Below General: Reports: Fever, Weakness, Fatigue, Weight Loss HEENT: Reports: No Symptoms Pulmonary: Reports: Shortness of Breath, Cough, Sputum. Denies: Wheezing, Hemoptysis Cardiovascular: Reports: Chest Pain Gastrointestinal: Reports: Decreased Appetite. Denies: Abdominal Pain, Anorexia Genitourinary: Reports: No Symptoms Musculoskeletal: Reports: No Symptoms Skin: Reports: No Symptoms Psychiatric: Reports: No Symptoms Neurological: Denies: Confusion, Dizziness Hematologic/Lymphatic: Reports: Anemia Immunologic: Reports: No Symptoms Exam - Exam Exam: See Below - Vital Signs Vital Signs: Last Vital Signs Temp 99.9 F 01/31/17 07:50 Pulse 113 H 01/31/17 07:50 Resp 22 H 01/31/17 07:50 BP 109/64 01/31/17 07:50 Pulse Ox 93 L 01/31/17 07:50 Weight: 129 lb - Exam Quality Assessment: Supplemental Oxygen General: Alert, Oriented, Cooperative, Moderate Distress HEENT: Conjunctiva Clear. No: Scleral Icterus Neck: Supple, Trachea Midline Lungs: Decreased Breath Sounds (RUL), Rhonchi Cardiovascular: Tachycardia GI/Abdominal Exam: Normal Bowel Sounds, Soft, Non-Tender, No Organomegaly, No Distention (Male) Exam: No Hernia Back Exam: Other (Large right postero-lateral fluid collection above and under the thoracotomy incision.) Extremities: No Pedal Edema Skin: Warm, Dry, Intact, Incision (Well healed right thoracotomy incision with man-incisional fluid collection.) Neurological: Cranial Nerves Intact Neuro Extensive - Mental Status: Alert, Oriented x3, Normal Cognition Psychiatric: Alert, Normal Affect, Normal Mood - Patient Data Lab Results Last 24 hrs: Laboratory Results - last 24 hr 01/30/17 01/31/17 01/31/17 Range/Units 22:28 02:00 04:56 WBC 21.21 H (4.0-11.0) K/uL RBC 2.65 L (4.50-5.90) M/uL Hgb 6.6 L (13.0-17.0) g/dL Hct 21.0 L (38.0-50.0) % MCV 79.2 L (80.0-98.0) fL MCH 24.9 L (27.0-32.0) pg MCHC 31.4 (31.0-37.0) g/dL RDW Std Deviation 53.5 (28.0-62.0) fl RDW Coeff of An 19 H (11.0-15.0) % Plt Count 345 (150-400) K/uL MPV 8.60 (7.40-12.00) fL Neut % (Auto) 87.4 H (48.0-80.0) % Lymph % (Auto) 5.2 L (16.0-40.0) % [place] % (Auto) 7.3 (0.0-15.0) % Eos % (Auto) 0.1 (0.0-7.0) % Baso % (Auto) 0.0 (0.0-1.5) % Neut # (Auto) 18.5 H (1.4-5.7) K/uL Lymph # (Auto) 1.1 (0.6-2.4) K/uL [place] # (Auto) 1.6 H (0.0-0.8) K/uL Eos # (Auto) 0.0 (0.0-0.7) K/uL Baso # (Auto) 0.0 (0.0-0.1) K/uL Nucleated RBC % 0.0 /100WBC Nucleated RBCs # 0 K/uL Lactate 1.1 (0.20-2.00) mmol/L Sodium (136-146) mmol/L Potassium (3.5-5.1) mmol/L Chloride (98-110) mmol/L Carbon Dioxide (21-31) mmol/L BUN (6.0-23.0) mg/dL Creatinine (0.6-1.5) mg/dL Est Cr Clr Drug Dosing mL/min Estimated GFR (MDRD) ml/min Glucose (60-110) mg/dL Calcium (8.8-10.8) mg/dL Urine Color YELLOW Urine Appearance CLEAR Urine pH 7.5 (5.0-8.0) Ur Specific [place] 1.010 (1.001-1.035) Urine Protein NEGATIVE (NEGATIVE) mg/dL Urine Glucose (UA) NEGATIVE (NEGATIVE) mg/dL Urine Ketones NEGATIVE (NEGATIVE) mg/dL Urine Occult Blood LARGE H (NEGATIVE) Urine Nitrite NEGATIVE (NEGATIVE) Urine Bilirubin NEGATIVE (NEGATIVE) Urine Urobilinogen 0.2 (<2.0) EU/dL Ur Leukocyte Esterase NEGATIVE (NEGATIVE) Urine RBC 10-12 (0-2/HPF) Urine WBC 0-2 (0-5/HPF) Ur Epithelial Cells RARE (NONE-FEW) Urine Bacteria RARE (NEGATIVE) Blood Type Antibody Screen Crossmatch 01/31/17 01/31/17 Range/Units 04:56 06:28 WBC (4.0-11.0) K/uL RBC (4.50-5.90) M/uL Hgb (13.0-17.0) g/dL Hct (38.0-50.0) % MCV (80.0-98.0) fL MCH (27.0-32.0) pg MCHC (31.0-37.0) g/dL RDW Std Deviation (28.0-62.0) fl RDW Coeff of An (11.0-15.0) % Plt Count (150-400) K/uL MPV (7.40-12.00) fL Neut % (Auto) (48.0-80.0) % Lymph % (Auto) (16.0-40.0) % [place] % (Auto) (0.0-15.0) % Eos % (Auto) (0.0-7.0) % Baso % (Auto) (0.0-1.5) % Neut # (Auto) (1.4-5.7) K/uL Lymph # (Auto) (0.6-2.4) K/uL [place] # (Auto) (0.0-0.8) K/uL Eos # (Auto) (0.0-0.7) K/uL Baso # (Auto) (0.0-0.1) K/uL Nucleated RBC % /100WBC Nucleated RBCs # K/uL Lactate (0.20-2.00) mmol/L Sodium 125 L (136-146) mmol/L Potassium 3.8 (3.5-5.1) mmol/L Chloride 93 L (98-110) mmol/L Carbon Dioxide 24 (21-31) mmol/L BUN 6 (6.0-23.0) mg/dL Creatinine 0.6 (0.6-1.5) mg/dL Est Cr Clr Drug Dosing 111.07 mL/min Estimated GFR (MDRD) > 60.0 ml/min Glucose 113 H (60-110) mg/dL Calcium 7.1 L (8.8-10.8) mg/dL Urine Color Urine Appearance Urine pH (5.0-8.0) Ur Specific [place] (1.001-1.035) Urine Protein (NEGATIVE) mg/dL Urine Glucose (UA) (NEGATIVE) mg/dL Urine Ketones (NEGATIVE) mg/dL Urine Occult Blood (NEGATIVE) Urine Nitrite (NEGATIVE) Urine Bilirubin (NEGATIVE) Urine Urobilinogen (<2.0) EU/dL Ur Leukocyte Esterase (NEGATIVE) Urine RBC (0-2/HPF) Urine WBC (0-5/HPF) Ur Epithelial Cells (NONE-FEW) Urine Bacteria (NEGATIVE) Blood Type A POSITIVE Antibody Screen NEGATIVE Crossmatch See Detail Result Diagrams: 01/31/17 04:56 01/31/17 04:56 Imaging Impressions Last 24 hrs: CXR and CT show a large opacified mass with air-fluid level in the RUL region. The CT also shows a large soft tissue fluid collection in the subcutaneous region with an extra-pleural collection of air. Consult PN Assessment/Plan Procedures: Procedures CHEMO IV INFUS EACH ADDL SEQ (12/28/16) CHEMO IV INFUSION 1 HR (12/28/16) CHEMO IV INFUSION ADDL HR (12/28/16) CHEST X-RAY 1 VIEW FRONTAL (07/27/16) CHEST X-RAY 2VW FRONTAL&LATL (08/11/16) CO/MEMBANE DIFFUSE CAPACITY (07/08/16) COMPLETE CBC W/AUTO DIFF WBC (12/28/16) COMPREHEN METABOLIC PANEL (12/28/16) CT THORAX W/DYE (12/13/16) DESIGN MLC DEVICE FOR IMRT (07/08/16) DRAW BLOOD OFF VENOUS DEVICE (12/28/16) ELECTROCARDIOGRAM TRACING (12/28/16) EMERGENCY DEPT VISIT (04/26/14) EMERGENCY DEPT VISIT (04/08/14) EMERGENCY DEPT VISIT (04/08/14) EMERGENCY DEPT VISIT (01/18/14) EVALUATE PT USE OF INHALER (04/26/14) EVALUATION OF WHEEZING (07/08/16) FLUOROSCOPE EXAMINATION (07/27/16) HYDRATE IV INFUSION ADD-ON (08/24/16) HYDRATION IV INFUSION INIT (08/24/16) IMMUNIZATION ADMIN (04/08/14) INSERT TUNNELED CV CATH (07/27/16) METABOLIC PANEL TOTAL CA (07/27/16) MR ANGIOGRAPH NECK W/O&W/DYE (08/14/14) MRI BRAIN STEM W/O & W/DYE (10/05/16) NEUROMUSCULAR REEDUCATION (10/01/13) NTSTY MODUL RAD TX DLVR CPLX (08/24/16) OFFICE/OUTPATIENT VISIT EST (10/24/16) RADIATION PHYSICS CONSULT (08/24/16) RADIATION THERAPY DOSE PLAN (07/08/16) RADIATION TREATMENT AID(S) (07/07/16) RADIOTHERAPY DOSE PLAN IMRT (07/08/16) RESPIRATOR MOTION MGMT SIMUL (07/08/16) ROUTINE VENIPUNCTURE (12/28/16) RPR S/N/AX/GEN/TRNK 2.5CM/< (04/08/14) TDAP VACCINE 7 YRS/> IM (04/08/14) THERAPEUTIC ACTIVITIES (10/15/13) THERAPEUTIC EXERCISES (10/15/13) TX/PRO/DX INJ NEW DRUG ADDON (12/28/16) TX/PROPH/DG ADDL SEQ IV INF (12/28/16) URINALYSIS AUTO W/O SCOPE (12/28/16) X-RAY EXAM RIBS UNI 2 VIEWS (04/26/14) (1) Empyema of pleura SNOMED Code(s): 38749454 Code(s): J86.9 - PYOTHORAX WITHOUT FISTULA Priority: High Current Visit: Yes (2) Lung abscess SNOMED Code(s): 42916949 Code(s): J85.2 - ABSCESS OF LUNG WITHOUT PNEUMONIA Priority: High Current Visit: Yes Qualifiers: Pulmonary abscess pneumonia presence: with pneumonia Laterality: right Lung location: upper lobe of lung Qualified Code(s): J85.1 - Abscess of lung with pneumonia (3) Postoperative seroma SNOMED Code(s): 565625587 Code(s): HWL3744 - Priority: Medium Current Visit: Yes Qualifiers: Surgical complication system/body Area: subcutaneous tissue Procedure type : non-dermatologic Qualified Code(s): L76.34 - Postprocedural seroma of skin and subcutaneous tissue following other procedure (4) Cavitating mass in right upper lung lobe SNOMED Code(s): 99310840 Code(s): J98.4 - OTHER DISORDERS OF LUNG Priority: High Current Visit: Yes (5) Sepsis SNOMED Code(s): 72235965 Code(s): A41.9 - SEPSIS, UNSPECIFIED ORGANISM Priority: High Current Visit: Yes Qualifiers: Sepsis type: sepsis due to unspecified organism Qualified Code(s): A41.9 - Sepsis, unspecified organism Problem List Initiated/Reviewed/Updated: Yes Plan: Recommend transfer to a facility with thoracic capability. Patient is extremely high risk for intervention but may need thoracosopy and pleural drainage. Consideration could be given to attempting aspiration of the subcutaneous fluid collection but this will not resolve the problem.
--- NOTE | 2017-01-31 08:38 | CR ---
EXAM DATE: 01/30/17 PATIENT'S AGE: 56 Patient: JOEL MCDONALD Facility: [place], [place] Site . Site : 1960 Study: XRay Chest [id number]/7/2017 5:15:37 PM Ordering Physician: Doctor Roldan Final Report: HISTORY: Pain, shortness of breath. Right lung cancer. FINDINGS: PA and lateral chest radiographs are compared to 11 August 2016. Left-sided Port-A-Cath in place with tip in the SVC without change. Cardiac silhouette is normal. Left lung is clear. There is increasing density opacity seen in the right upper lobe with volume loss and some elevation of right hemidiaphragm. There is air fluid level seen within the lateral of the right upper lobe measuring 2.9. cm in width. More medially in the suprahilar region is a 4.1 cm mass like appearance. No pleural effusion is seen. The right middle lobe and right lower lobe appear well aerated. IMPRESSION: Appearance of volume loss with consolidation and masslike appearance of the right upper lobe. Additionally is a 2.9 cm cavitary lesion with an air-fluid level in the right lung apex. Dictated by Marielle Sherman MD @ 01/30/2017 5:48:04 PM Dictated by: Marielle Sherman MD @ 01/30/2017 17:48:41 (Electronic Signature) Report Signed by Proxy. SANDRA
--- NOTE | 2017-01-31 08:48 | CT ---
EXAM DATE: 01/30/17 PATIENT'S AGE: 56 Patient: JOEL MCDONALD Facility: [place], [place] Site . Site : 1960 Study: CT Chest [id number]/7/2017 11:14:21 PM Ordering Physician: Pratik Bruno Final Report: HISTORY: Lung cancer, abscess, sepsis. TECHNIQUE: The chest was scanned using helical technique at 3 mm after 50 cc of Isovue- 370. Sagittal and coronal reconstructions were performed. COMPARISON: 13 December 2016. FINDINGS: Mediastinum and geovani: Thyroid is unremarkable. Stable 1.4 x 1.1 cm subcarinal lymph node. No discrete hilar lymphadenopathy is seen. Cardiovascular structures: Thoracic aorta is normal in caliber. There is calcification seen within the left anterior descending and left circumflex right coronary arteries. The heart is normal size. There is trace pericardial effusion. Lungs and pleura: Small right pleural effusion. There is increased cavitation of the large right suprahilar mass. There is multiple cavitary foci with air- fluid levels. Multiple tiny bubbles of air seen in the right upper lobe. There is some atelectatic lung inferior to the right upper lobe mass. There is increasing density seen along the bronchovascular markings in posterior aspect of the right upper lobe with lobular pleural thickening. Cavitation appears contiguous with the right tracheobronchial tree. Chest wall: There are tiny bubbles of air seen at posterior chest wall. There is a large fluid collection with air seen along the outside of the bony thorax deep to the scapula into the right paraspinal muscles. This measures 12.9 x 3.9 x 11.6 cm and new from prior exam. It contains a small amount of air as well. Upper abdomen: Liver is homogeneous. No calcified gallstones. The spleen is normal size. Adrenal glands are normal. Kidneys have symmetric nephrograms. Pancreatic body and tail are normal. IMPRESSION: 1. There is increasing cavitation and multi locular appearance RUL mass suspicious for superimposed abscesses ad necrosis. Multiple fluid and air filled cavities are seen within the right apex. There is some atelectatic lung in the inferior aspect of the right upper lobe mass with increasing density seen bronchovascular markings posteriorly. While this could also represent an infectious process,, it is suspicious for progression of neoplasia. 2. There is pleural thickening seen in the posterior aspect of the right upper lobe with a small right pleural effusion 3. New fluid collection seen outside the right bony thorax abutting the bony thorax deep to the scapula extending to the paraspinous muscles. This contains air and a bolus suspicious for abscess and infection given the progression since prior exam and history. Dictated by Marielle Sherman MD @ 01/30/2017 11:44:03 PM Dictated by: Marielle Sherman MD @ 01/30/2017 23:45:25 (Electronic Signature) Report Signed by Proxy. SANDRA
[2017-01-31] MEDS ORDERED: amLODIPine 5 MG Tab PO SCH (09:00)
[2017-01-31] MEDS ORDERED: atorvaSTATin 10 MG Tab PO SCH (09:00)
[2017-01-31] MEDS ORDERED: Aspirin 325 MG Tab PO SCH (09:00)
[2017-01-31] MEDS ORDERED: Calcium Carbonate/Vitamin D3 1500 MG-400 Units Tab PO SCH (09:00)
[2017-01-31] MEDS ORDERED: Pregabalin 75 MG Cap PO SCH (09:00)
[2017-01-31] MEDS ORDERED: Dronabinol 2.5 MG Cap PO SCH (09:00)
[2017-01-31] MEDS ORDERED: Docusate Sodium 100 MG Cap PO PRN (09:00)
[2017-01-31] MEDS: Pantoprazole 40 MG in Sodium Chloride 0.9% 10 ML IVPUSH SCH (09:47)
[2017-01-31] MEDS ORDERED: Prochlorperazine 10 MG Tab PO PRN (09:57)
[2017-01-31] MEDS: Ferrous Sulfate 325 MG Tab PO SCH (10:11)
[2017-01-31] MEDS: Enoxaparin 40 MG/0.4 ML Syringe SUBCUT SCH (10:11)
[2017-01-31] MEDS: oxyCODONE ER 20 MG TAB.ER PO SCH (10:12)
--- NOTE | 2017-01-31 11:10 | PCM.DCSUM1 ---
Addendum entered and electronically signed by Janak Preston MD 01/31/17 13:02 : Discharge Summary - Hospital Course Free Text/Narrative:: Please note in Hospitalization course: Patients Lactate acid level should say 1.1 not II.1. - Discharge Data Discharge Date: 01/31/17 Discharge Disposition: DC/Tfer to Acute Hospital 02 Condition: Poor - Discharge Diagnosis/Problem(s) (1) Cavitating mass in right upper lung lobe SNOMED Code(s): 46611524 ICD Code: J98.4 - OTHER DISORDERS OF LUNG Status: Acute Priority: High (2) Empyema of pleura SNOMED Code(s): 87224751 ICD Code: J86.9 - PYOTHORAX WITHOUT FISTULA Status: Acute Priority: High (3) Hyponatremia SNOMED Code(s): 28228110 ICD Code: E87.1 - HYPO-OSMOLALITY AND HYPONATREMIA Status: Acute (4) Lung abscess SNOMED Code(s): 91685353 ICD Code: J85.2 - ABSCESS OF LUNG WITHOUT PNEUMONIA Status: Acute Priority: High Qualifiers: Pulmonary abscess pneumonia presence: with pneumonia Laterality: right Lung location: upper lobe of lung Qualified Code(s): J85.1 - Abscess of lung with pneumonia (5) Postoperative seroma SNOMED Code(s): 056395170 ICD Code: [id number] - Status: Acute Priority: Medium Qualifiers: Surgical complication system/body Area: subcutaneous tissue Procedure type : non-dermatologic Qualified Code(s): L76.34 - Postprocedural seroma of skin and subcutaneous tissue following other procedure (6) Sepsis SNOMED Code(s): 10669940 ICD Code: A41.9 - SEPSIS, UNSPECIFIED ORGANISM Status: Acute Priority: High Qualifiers: Sepsis type: sepsis due to unspecified organism Qualified Code(s): A41.9 - Sepsis, unspecified organism - Patient Summary/Data Consults: Consultations 01/31/17 07:26 Consult to Physician [CONS] Routine - Patient Instructions Diet: Regular Diet as Tolerated - Discharge Plan Home Medications: Home Meds amLODIPine [Norvasc] 5 mg PO DAILY 04/26/14 [History] atorvaSTATin Calcium [Atorvastatin Calcium] 10 mg PO DAILY 04/26/14 [History] Aspirin 325 mg PO DAILY 05/27/16 [History] Acetaminophen [Tylenol] 500 mg PO ASDIRECTED 01/30/17 [History] Benzonatate PRN 01/30/17 [History] Calcium Carbonate [Tums] 01/30/17 [History] Calcium Carbonate/Vitamin D3 [Calcium 600-Vit D3 800 Tab] 1 tab PO DAILY [History] Docusate Sodium [Colace] 1 cap PO ASDIRECTED 01/30/17 [History] Dronabinol 5 cap PO DAILY 01/30/17 [History] Ferrous Sulfate, Dried [Iron] 65 mg PO BID 01/30/17 [History] Ondansetron HCl [Zofran] 8 mg PO Q6HR PRN 01/30/17 [History] Polyethylene Glycol 3350 [MiraLAX] 17 gm PO DAILY PRN 01/30/17 [History] Pregabalin [Lyrica] 75 mg PO BID 01/30/17 [History] Prochlorperazine [Compazine] 10 mg PO TID PRN 01/30/17 [History] oxyCODONE 5 mg PO Q3HR PRN 01/30/17 [History] oxyCODONE HCl [Oxycontin] 20 mg PO Q12HR 01/30/17 [History] Levofloxacin/Dextrose 5%-Water [Levaquin in D5W 750 MG/150 ML] 750 mg IV Q24H bag 01/31/17 [Rx] Pantoprazole [ProTONIX IV] 40 mg IVPUSH Q12H vial 01/31/17 [Rx] Sodium Chloride 0.9% [Normal Saline] 125 ml IV ASDIRECTED #0 bag 01/31/17 [Rx] Vancomycin [Vancocin] 1 gm IV Q8H adv 01/31/17 [Rx] Referrals: PCP,None [Primary Care Provider] - - Patient Data Vitals - Most Recent: Last Vital Signs Temp 37.2 C 01/31/17 11:22 Pulse 112 H 01/31/17 11:22 Resp 21 H 01/31/17 11:22 BP 111/66 01/31/17 11:22 Pulse Ox 98 01/31/17 11:22 Weight - Most Recent: 58.513 kg I&O - Last 24 hours: Intake & Output 01/30/17 01/31/17 01/31/17 22:59 06:59 14:59 Intake Total 800 20 Output Total 425 Balance 375 20 Lab Results - Last 24 hrs: Laboratory Results - last 24 hr 01/30/17 01/31/17 01/31/17 Range/Units 22:28 02:00 04:56 WBC 21.21 H (4.0-11.0) K/uL RBC 2.65 L (4.50-5.90) M/uL Hgb 6.6 L (13.0-17.0) g/dL Hct 21.0 L (38.0-50.0) % MCV 79.2 L (80.0-98.0) fL MCH 24.9 L (27.0-32.0) pg MCHC 31.4 (31.0-37.0) g/dL RDW Std Deviation 53.5 (28.0-62.0) fl RDW Coeff of An 19 H (11.0-15.0) % Plt Count 345 (150-400) K/uL MPV 8.60 (7.40-12.00) fL Neut % (Auto) 87.4 H (48.0-80.0) % Lymph % (Auto) 5.2 L (16.0-40.0) % Payne % (Auto) 7.3 (0.0-15.0) % Eos % (Auto) 0.1 (0.0-7.0) % Baso % (Auto) 0.0 (0.0-1.5) % Neut # (Auto) 18.5 H (1.4-5.7) K/uL Lymph # (Auto) 1.1 (0.6-2.4) K/uL Payne # (Auto) 1.6 H (0.0-0.8) K/uL Eos # (Auto) 0.0 (0.0-0.7) K/uL Baso # (Auto) 0.0 (0.0-0.1) K/uL Nucleated RBC % 0.0 /100WBC Nucleated RBCs # 0 K/uL Lactate 1.1 (0.20-2.00) mmol/L Sodium (136-146) mmol/L Potassium (3.5-5.1) mmol/L Chloride (98-110) mmol/L Carbon Dioxide (21-31) mmol/L BUN (6.0-23.0) mg/dL Creatinine (0.6-1.5) mg/dL Est Cr Clr Drug Dosing mL/min Estimated GFR (MDRD) ml/min Glucose (60-110) mg/dL Calcium (8.8-10.8) mg/dL Urine Color YELLOW Urine Appearance CLEAR Urine pH 7.5 (5.0-8.0) Ur Specific [place] 1.010 (1.001-1.035) Urine Protein NEGATIVE (NEGATIVE) mg/dL Urine Glucose (UA) NEGATIVE (NEGATIVE) mg/dL Urine Ketones NEGATIVE (NEGATIVE) mg/dL Urine Occult Blood LARGE H (NEGATIVE) Urine Nitrite NEGATIVE (NEGATIVE) Urine Bilirubin NEGATIVE (NEGATIVE) Urine Urobilinogen 0.2 (<2.0) EU/dL Ur Leukocyte Esterase NEGATIVE (NEGATIVE) Urine RBC 10-12 (0-2/HPF) Urine WBC 0-2 (0-5/HPF) Ur Epithelial Cells RARE (NONE-FEW) Urine Bacteria RARE (NEGATIVE) Blood Type Antibody Screen Crossmatch 01/31/17 01/31/17 Range/Units 04:56 06:28 WBC (4.0-11.0) K/uL RBC (4.50-5.90) M/uL Hgb (13.0-17.0) g/dL Hct (38.0-50.0) % MCV (80.0-98.0) fL MCH (27.0-32.0) pg MCHC (31.0-37.0) g/dL RDW Std Deviation (28.0-62.0) fl RDW Coeff of An (11.0-15.0) % Plt Count (150-400) K/uL MPV (7.40-12.00) fL Neut % (Auto) (48.0-80.0) % Lymph % (Auto) (16.0-40.0) % Payne % (Auto) (0.0-15.0) % Eos % (Auto) (0.0-7.0) % Baso % (Auto) (0.0-1.5) % Neut # (Auto) (1.4-5.7) K/uL Lymph # (Auto) (0.6-2.4) K/uL Payne # (Auto) (0.0-0.8) K/uL Eos # (Auto) (0.0-0.7) K/uL Baso # (Auto) (0.0-0.1) K/uL Nucleated RBC % /100WBC Nucleated RBCs # K/uL Lactate (0.20-2.00) mmol/L Sodium 125 L (136-146) mmol/L Potassium 3.8 (3.5-5.1) mmol/L Chloride 93 L (98-110) mmol/L Carbon Dioxide 24 (21-31) mmol/L BUN 6 (6.0-23.0) mg/dL Creatinine 0.6 (0.6-1.5) mg/dL Est Cr Clr Drug Dosing 111.07 mL/min Estimated GFR (MDRD) > 60.0 ml/min Glucose 113 H (60-110) mg/dL Calcium 7.1 L (8.8-10.8) mg/dL Urine Color Urine Appearance Urine pH (5.0-8.0) Ur Specific [place] (1.001-1.035) Urine Protein (NEGATIVE) mg/dL Urine Glucose (UA) (NEGATIVE) mg/dL Urine Ketones (NEGATIVE) mg/dL Urine Occult Blood (NEGATIVE) Urine Nitrite (NEGATIVE) Urine Bilirubin (NEGATIVE) Urine Urobilinogen (<2.0) EU/dL Ur Leukocyte Esterase (NEGATIVE) Urine RBC (0-2/HPF) Urine WBC (0-5/HPF) Ur Epithelial Cells (NONE-FEW) Urine Bacteria (NEGATIVE) Blood Type A POSITIVE Antibody Screen NEGATIVE Crossmatch See Detail Med Orders - Current: Current Medications Discontinued Medications Acetaminophen (Tylenol Extra Strength) 500 mg PO TID PRN PRN Reason: PAIN Acetaminophen (Tylenol) 650 mg PO Q6H PRN PRN Reason: Fever Last Admin: 01/31/17 10:46 Dose: 650 mg Albuterol (Proventil Neb Soln) 2.5 mg NEB Q2H PRN PRN Reason: Shortness Of Breath/wheezing Amlodipine Besylate (Norvasc) 5 mg PO DAILY [facility] Last Admin: 01/31/17 10:12 Dose: Not Given Aspirin (Aspirin) 325 mg PO DAILY [facility] Last Admin: 01/31/17 10:10 Dose: Not Given Atorvastatin Calcium (Lipitor) 10 mg PO DAILY [facility] Last Admin: 01/31/17 10:12 Dose: Not Given Calcium Carbonate (Caltrate 600+D 1500 Mg-400 Units) 1 tab PO DAILY [facility] Last Admin: 01/31/17 10:11 Dose: Not Given Docusate Sodium (Colace) 300 mg PO DAILY PRN PRN Reason: Constipation Dronabinol (Marinol) 5 mg PO DAILY [facility] Last Admin: 01/31/17 10:12 Dose: Not Given Enoxaparin Sodium (Lovenox) 40 mg SUBCUT DAILY [facility] Last Admin: 01/31/17 10:11 Dose: Not Given Ferrous Sulfate (Ferrous Sulfate) 325 mg PO BID [facility] Last Admin: 01/31/17 10:11 Dose: Not Given Hydromorphone HCl (Dilaudid) 1 mg IVPUSH Q3H PRN PRN Reason: Pain Last Admin: 01/31/17 09:30 Dose: 1 mg Hydromorphone HCl (Dilaudid) 1 mg IVPUSH ONETIME ONE Stop: 01/31/17 12:08 Last Admin: 01/31/17 12:00 Dose: 1 mg Sodium Chloride (Normal Saline) 1,000 mls @ 999 mls/hr IV STAT ONE Stop: 01/30/17 17:24 Last Admin: 01/30/17 16:35 Dose: 999 mls/hr Piperacillin Sod/Tazobactam (Sod 3.375 gm/ Sodium Chloride) 50 mls @ 100 mls/ hr IV ONETIME ONE Stop: 01/30/17 19:03 Last Admin: 01/30/17 18:41 Dose: 100 mls/hr Levofloxacin/Dextrose 750 mg/ (Premix) 150 mls @ 100 mls/hr IV Q24H [facility] Last Admin: 01/30/17 20:12 Dose: 100 mls/hr Piperacillin Sod/Tazobactam (Sod 3.375 gm/ Sodium Chloride) 50 mls @ 100 mls/ hr IV Q6H [facility] Last Admin: 01/31/17 06:43 Dose: 100 mls/hr Vancomycin HCl 1 gm/ Sodium (Chloride) 250 mls @ 166 mls/hr IV Q8H [facility] Last Admin: 01/31/17 05:23 Dose: 166 mls/hr Sodium Chloride (Normal Saline) 1,000 mls @ 125 mls/hr IV ASDIRECTED [facility] Last Admin: 01/31/17 10:22 Dose: 125 mls/hr Pantoprazole Sodium 40 mg/ (Sodium Chloride) 10 mls @ 300 mls/hr IVPUSH Q12H [facility] Last Admin: 01/31/17 09:47 Dose: 300 mls/hr Sodium Chloride (Normal Saline) 1,000 mls @ 999 mls/hr IV ASDIRECTED [facility] Stop: 01/31/17 01:46 Last Admin: 01/31/17 00:57 Dose: 999 mls/hr Iopamidol (Isovue Multipack-370 (76%)) 50 ml IVPUSH ONETIME STA Stop: 01/30/17 22:19 Last Admin: 01/30/17 22:19 Dose: 50 ml Ketorolac Tromethamine (Toradol) 30 mg IVPUSH ONETIME ONE Stop: 01/30/17 16:25 Last Admin: 01/30/17 16:35 Dose: 30 mg Ondansetron HCl (Zofran) 4 mg IVPUSH ONETIME ONE Stop: 01/30/17 16:25 Last Admin: 01/30/17 16:35 Dose: 4 mg Ondansetron HCl (Zofran Odt) 4 mg PO Q4H PRN PRN Reason: nausea, able to take PO Oxycodone HCl (Oxycontin) 20 mg PO Q12HR [facility] Last Admin: 01/31/17 10:12 Dose: Not Given Oxycodone HCl (Oxycodone) 5 mg PO Q3HR PRN PRN Reason: Pain Last Admin: 01/31/17 06:42 Dose: 5 mg Polyethylene Glycol (Miralax) 17 gm PO DAILY [facility] Pregabalin (Lyrica) 75 mg PO BID [facility] Last Admin: 01/31/17 10:12 Dose: Not Given Prochlorperazine Maleate (Compazine) 10 mg PO TID PRN PRN Reason: Nausea Vancomycin HCl (Pharmacy To Dose - Vancomycin) 1 dose .XX ASDIRECTED [facility] Zaleplon (Sonata) 10 mg PO BEDTIME [facility] Last Admin: 01/30/17 21:01 Dose: 10 mg Original Note: Discharge Summary - Hospital Course Free Text/Narrative:: *Summary: Date of admission: 01/30/2017 Date of discharge: 01/31/2017 Admitting diagnosis: #1. Sepsis in the setting of recent thoracotomy and current diagnosis of squamous cell carcinoma of the lung #2. Hyponatremia with sodium of 126 #3. Dark stools with anemia hemoglobin of 7.7 #4. Leukocytosis with a WBC count of 23,000 primarily neutrophilic shift,, reactive thrombocytosis, with tachypnea and tachycardia and elevated temperature. #5. Elevated lactate acid level of 2.1 Discharge diagnoses: #1. Sepsis in the setting of elevated lactate acid level which is now normalized , leukocytosis with a WBC of 21,000, febrile with a temperature of 100.8, tachypnea, tachycardia secondary to likely right upper lobe abscess/ mass #2. Hyponatremia with a sodium of 125 #3. Anemia of 6.6 patient did receive 2 units RBC #4. Leukocytosis with a WBC of 21,000 neutrophilic shift Consultations: Oziel Toure M.D., general surgery Procedures: None Hospitalization course: Patient admitted to the floor after being assessed in the ER noted to have tachycardia, tachypnea, elevated lactate acid level II.1, hyponatremia of 126, leukocytosis of 23,000 with a neutrophilic shift. Patient was also noted to have anemia with a hemoglobin of 7.7. Chest x-ray in ER showed volume loss with consolidation/mass like appearance of the right upper lobe and a 2.9 cm cavitary lesion with air-fluid level in the right lung apex. She was given a one -time dose in the ER of Zosyn as well as pain medication. The patient was admitted to the floor from broad-spectrum antibiotics of vancomycin, Levaquin, and Zosyn. CT was ordered which showed increasing cavitation and multi locular appearance of the right upper lung mass suspicious for superimposed abscess with necrosis. Surgery was then consult the surgery since the patient and felt that the patient is to be transferred to a facility capable of thoracic intervention. Since that patient is cleared to need a thorascopy and a pleural drainage. Subsequently the decision was made to transfer the patient over to [facility]. Patient also is to receive 2 units of RBC for his anemia of 6.6. Patient has been kept NPO for possible procedure midnight. Disposition on discharge: [facility] [place] Condition on discharge: Patient is slightly tachypneic and tachycardic with a temperature of 100.8, he is receiving fluids as well as IV antibiotics, and for the patient's anemia he is receiving 2 units of RBC. Patient is stable enough for transfer. Patient is NPO for possible intervention. - Discharge Data Discharge Date: 01/31/17 Discharge Disposition: DC/Tfer to Acute Hospital 02 Condition: Poor - Discharge Diagnosis/Problem(s) (1) Cavitating mass in right upper lung lobe SNOMED Code(s): 54496232 ICD Code: J98.4 - OTHER DISORDERS OF LUNG Status: Acute Priority: High Current Visit: Yes (2) Empyema of pleura SNOMED Code(s): 55366283 ICD Code: J86.9 - PYOTHORAX WITHOUT FISTULA Status: Acute Priority: High Current Visit: Yes (3) Hyponatremia SNOMED Code(s): 28485263 ICD Code: E87.1 - HYPO-OSMOLALITY AND HYPONATREMIA Status: Acute Current Visit: Yes (4) Lung abscess SNOMED Code(s): 27612528 ICD Code: J85.2 - ABSCESS OF LUNG WITHOUT PNEUMONIA Status: Acute Priority: High Current Visit: Yes Qualifiers: Pulmonary abscess pneumonia presence: with pneumonia Laterality: right Lung location: upper lobe of lung Qualified Code(s): J85.1 - Abscess of lung with pneumonia (5) Postoperative seroma SNOMED Code(s): 979505142 ICD Code: [id number] - Status: Acute Priority: Medium Current Visit: Yes Qualifiers: Surgical complication system/body Area: subcutaneous tissue Procedure type : non-dermatologic Qualified Code(s): L76.34 - Postprocedural seroma of skin and subcutaneous tissue following other procedure (6) Sepsis SNOMED Code(s): 32526960 ICD Code: A41.9 - SEPSIS, UNSPECIFIED ORGANISM Status: Acute Priority: High Current Visit: Yes Qualifiers: Sepsis type: sepsis due to unspecified organism Qualified Code(s): A41.9 - Sepsis, unspecified organism - Patient Summary/Data Consults: Consultations 01/31/17 07:26 Consult to Physician [CONS] Routine - Patient Instructions Diet: Regular Diet as Tolerated - Discharge Plan Home Medications: Home Meds amLODIPine [Norvasc] 5 mg PO DAILY 04/26/14 [History] atorvaSTATin Calcium [Atorvastatin Calcium] 10 mg PO DAILY 04/26/14 [History] Aspirin 325 mg PO DAILY 05/27/16 [History] Acetaminophen [Tylenol] 500 mg PO ASDIRECTED 01/30/17 [History] Benzonatate PRN 01/30/17 [History] Calcium Carbonate [Tums] 01/30/17 [History] Calcium Carbonate/Vitamin D3 [Calcium 600-Vit D3 800 Tab] 1 tab PO DAILY [History] Docusate Sodium [Colace] 1 cap PO ASDIRECTED 01/30/17 [History] Dronabinol 5 cap PO DAILY 01/30/17 [History] Ferrous Sulfate, Dried [Iron] 65 mg PO BID 01/30/17 [History] Ondansetron HCl [Zofran] 8 mg PO Q6HR PRN 01/30/17 [History] Polyethylene Glycol 3350 [MiraLAX] 17 gm PO DAILY PRN 01/30/17 [History] Pregabalin [Lyrica] 75 mg PO BID 01/30/17 [History] Prochlorperazine [Compazine] 10 mg PO TID PRN 01/30/17 [History] oxyCODONE 5 mg PO Q3HR PRN 01/30/17 [History] oxyCODONE HCl [Oxycontin] 20 mg PO Q12HR 01/30/17 [History] Levofloxacin/Dextrose 5%-Water [Levaquin in D5W 750 MG/150 ML] 750 mg IV Q24H bag 01/31/17 [Rx] Pantoprazole [ProTONIX IV] 40 mg IVPUSH Q12H vial 01/31/17 [Rx] Sodium Chloride 0.9% [Normal Saline] 125 ml IV ASDIRECTED #0 bag 01/31/17 [Rx] Vancomycin [Vancocin] 1 gm IV Q8H adv 01/31/17 [Rx] Referrals: PCP,None [Primary Care Provider] - - Discharge Summary/Plan Comment DC Time >30 min.: No - Patient Data Vitals - Most Recent: Last Vital Signs Temp 38.8 C H 01/31/17 10:46 Pulse 119 H 01/31/17 10:46 Resp 22 H 01/31/17 10:46 BP 134/76 01/31/17 10:46 Pulse Ox 94 L 01/31/17 10:46 Weight - Most Recent: 58.513 kg I&O - Last 24 hours: Intake & Output 01/30/17 01/31/17 01/31/17 22:59 06:59 14:59 Intake Total 800 Output Total 425 Balance 375 Lab Results - Last 24 hrs: Laboratory Results - last 24 hr 01/30/17 01/31/17 01/31/17 Range/Units 22:28 02:00 04:56 WBC 21.21 H (4.0-11.0) K/uL RBC 2.65 L (4.50-5.90) M/uL Hgb 6.6 L (13.0-17.0) g/dL Hct 21.0 L (38.0-50.0) % MCV 79.2 L (80.0-98.0) fL MCH 24.9 L (27.0-32.0) pg MCHC 31.4 (31.0-37.0) g/dL RDW Std Deviation 53.5 (28.0-62.0) fl RDW Coeff of An 19 H (11.0-15.0) % Plt Count 345 (150-400) K/uL MPV 8.60 (7.40-12.00) fL Neut % (Auto) 87.4 H (48.0-80.0) % Lymph % (Auto) 5.2 L (16.0-40.0) % Payne % (Auto) 7.3 (0.0-15.0) % Eos % (Auto) 0.1 (0.0-7.0) % Baso % (Auto) 0.0 (0.0-1.5) % Neut # (Auto) 18.5 H (1.4-5.7) K/uL Lymph # (Auto) 1.1 (0.6-2.4) K/uL [place] # (Auto) 1.6 H (0.0-0.8) K/uL Eos # (Auto) 0.0 (0.0-0.7) K/uL Baso # (Auto) 0.0 (0.0-0.1) K/uL Nucleated RBC % 0.0 /100WBC Nucleated RBCs # 0 K/uL Lactate 1.1 (0.20-2.00) mmol/L Sodium (136-146) mmol/L Potassium (3.5-5.1) mmol/L Chloride (98-110) mmol/L Carbon Dioxide (21-31) mmol/L BUN (6.0-23.0) mg/dL Creatinine (0.6-1.5) mg/dL Est Cr Clr Drug Dosing mL/min Estimated GFR (MDRD) ml/min Glucose (60-110) mg/dL Calcium (8.8-10.8) mg/dL Urine Color YELLOW Urine Appearance CLEAR Urine pH 7.5 (5.0-8.0) Ur Specific [place] 1.010 (1.001-1.035) Urine Protein NEGATIVE (NEGATIVE) mg/dL Urine Glucose (UA) NEGATIVE (NEGATIVE) mg/dL Urine Ketones NEGATIVE (NEGATIVE) mg/dL Urine Occult Blood LARGE H (NEGATIVE) Urine Nitrite NEGATIVE (NEGATIVE) Urine Bilirubin NEGATIVE (NEGATIVE) Urine Urobilinogen 0.2 (<2.0) EU/dL Ur Leukocyte Esterase NEGATIVE (NEGATIVE) Urine RBC 10-12 (0-2/HPF) Urine WBC 0-2 (0-5/HPF) Ur Epithelial Cells RARE (NONE-FEW) Urine Bacteria RARE (NEGATIVE) Blood Type Antibody Screen Crossmatch 01/31/17 01/31/17 Range/Units 04:56 06:28 WBC (4.0-11.0) K/uL RBC (4.50-5.90) M/uL Hgb (13.0-17.0) g/dL Hct (38.0-50.0) % MCV (80.0-98.0) fL MCH (27.0-32.0) pg MCHC (31.0-37.0) g/dL RDW Std Deviation (28.0-62.0) fl RDW Coeff of An (11.0-15.0) % Plt Count (150-400) K/uL MPV (7.40-12.00) fL Neut % (Auto) (48.0-80.0) % Lymph % (Auto) (16.0-40.0) % Payne % (Auto) (0.0-15.0) % Eos % (Auto) (0.0-7.0) % Baso % (Auto) (0.0-1.5) % Neut # (Auto) (1.4-5.7) K/uL Lymph # (Auto) (0.6-2.4) K/uL Payne # (Auto) (0.0-0.8) K/uL Eos # (Auto) (0.0-0.7) K/uL Baso # (Auto) (0.0-0.1) K/uL Nucleated RBC % /100WBC Nucleated RBCs # K/uL Lactate (0.20-2.00) mmol/L Sodium 125 L (136-146) mmol/L Potassium 3.8 (3.5-5.1) mmol/L Chloride 93 L (98-110) mmol/L Carbon Dioxide 24 (21-31) mmol/L BUN 6 (6.0-23.0) mg/dL Creatinine 0.6 (0.6-1.5) mg/dL Est Cr Clr Drug Dosing 111.07 mL/min Estimated GFR (MDRD) > 60.0 ml/min Glucose 113 H (60-110) mg/dL Calcium 7.1 L (8.8-10.8) mg/dL Urine Color Urine Appearance Urine pH (5.0-8.0) Ur Specific [place] (1.001-1.035) Urine Protein (NEGATIVE) mg/dL Urine Glucose (UA) (NEGATIVE) mg/dL Urine Ketones (NEGATIVE) mg/dL Urine Occult Blood (NEGATIVE) Urine Nitrite (NEGATIVE) Urine Bilirubin (NEGATIVE) Urine Urobilinogen (<2.0) EU/dL Ur Leukocyte Esterase (NEGATIVE) Urine RBC (0-2/HPF) Urine WBC (0-5/HPF) Ur Epithelial Cells (NONE-FEW) Urine Bacteria (NEGATIVE) Blood Type A POSITIVE Antibody Screen NEGATIVE Crossmatch See Detail Med Orders - Current: Current Medications Acetaminophen (Tylenol Extra Strength) 500 mg PO TID PRN PRN Reason: PAIN Acetaminophen (Tylenol) 650 mg PO Q6H PRN PRN Reason: Fever Last Admin: 01/31/17 10:46 Dose: 650 mg Albuterol (Proventil Neb Soln) 2.5 mg NEB Q2H PRN PRN Reason: Shortness Of Breath/wheezing Amlodipine Besylate (Norvasc) 5 mg PO DAILY [facility] Last Admin: 01/31/17 10:12 Dose: Not Given Aspirin (Aspirin) 325 mg PO DAILY [facility] Last Admin: 01/31/17 10:10 Dose: Not Given Atorvastatin Calcium (Lipitor) 10 mg PO DAILY [facility] Last Admin: 01/31/17 10:12 Dose: Not Given Calcium Carbonate (Caltrate 600+D 1500 Mg-400 Units) 1 tab PO DAILY [facility] Last Admin: 01/31/17 10:11 Dose: Not Given Docusate Sodium (Colace) 300 mg PO DAILY PRN PRN Reason: Constipation Dronabinol (Marinol) 5 mg PO DAILY [facility] Last Admin: 01/31/17 10:12 Dose: Not Given Enoxaparin Sodium (Lovenox) 40 mg SUBCUT DAILY [facility] Last Admin: 01/31/17 10:11 Dose: Not Given Ferrous Sulfate (Ferrous Sulfate) 325 mg PO BID [facility] Last Admin: 01/31/17 10:11 Dose: Not Given Hydromorphone HCl (Dilaudid) 1 mg IVPUSH Q3H PRN PRN Reason: Pain Last Admin: 01/31/17 09:30 Dose: 1 mg Levofloxacin/Dextrose 750 mg/ (Premix) 150 mls @ 100 mls/hr IV Q24H [facility] Last Admin: 01/30/17 20:12 Dose: 100 mls/hr Piperacillin Sod/Tazobactam (Sod 3.375 gm/ Sodium Chloride) 50 mls @ 100 mls/ hr IV Q6H [facility] Last Admin: 01/31/17 06:43 Dose: 100 mls/hr Vancomycin HCl 1 gm/ Sodium (Chloride) 250 mls @ 166 mls/hr IV Q8H [facility] Last Admin: 01/31/17 05:23 Dose: 166 mls/hr Sodium Chloride (Normal Saline) 1,000 mls @ 125 mls/hr IV ASDIRECTED [facility] Last Admin: 01/31/17 10:22 Dose: 125 mls/hr Pantoprazole Sodium 40 mg/ (Sodium Chloride) 10 mls @ 300 mls/hr IVPUSH Q12H [facility] Last Admin: 01/31/17 09:47 Dose: 300 mls/hr Ondansetron HCl (Zofran Odt) 4 mg PO Q4H PRN PRN Reason: nausea, able to take PO Oxycodone HCl (Oxycontin) 20 mg PO Q12HR [facility] Last Admin: 01/31/17 10:12 Dose: Not Given Oxycodone HCl (Oxycodone) 5 mg PO Q3HR PRN PRN Reason: Pain Last Admin: 01/31/17 06:42 Dose: 5 mg Polyethylene Glycol (Miralax) 17 gm PO DAILY [facility] Pregabalin (Lyrica) 75 mg PO BID [facility] Last Admin: 01/31/17 10:12 Dose: Not Given Prochlorperazine Maleate (Compazine) 10 mg PO TID PRN PRN Reason: Nausea Vancomycin HCl (Pharmacy To Dose - Vancomycin) 1 dose .XX ASDIRECTED [facility] Zaleplon (Sonata) 10 mg PO BEDTIME [facility] Last Admin: 01/30/17 21:01 Dose: 10 mg Discontinued Medications Sodium Chloride (Normal Saline) 1,000 mls @ 999 mls/hr IV STAT ONE Stop: 01/30/17 17:24 Last Admin: 01/30/17 16:35 Dose: 999 mls/hr Piperacillin Sod/Tazobactam (Sod 3.375 gm/ Sodium Chloride) 50 mls @ 100 mls/ hr IV ONETIME ONE Stop: 01/30/17 19:03 Last Admin: 01/30/17 18:41 Dose: 100 mls/hr Sodium Chloride (Normal Saline) 1,000 mls @ 999 mls/hr IV ASDIRECTED [facility] Stop: 01/31/17 01:46 Last Admin: 01/31/17 00:57 Dose: 999 mls/hr Iopamidol (Isovue Multipack-370 (76%)) 50 ml IVPUSH ONETIME STA Stop: 01/30/17 22:19 Last Admin: 01/30/17 22:19 Dose: 50 ml Ketorolac Tromethamine (Toradol) 30 mg IVPUSH ONETIME ONE Stop: 01/30/17 16:25 Last Admin: 01/30/17 16:35 Dose: 30 mg Ondansetron HCl (Zofran) 4 mg IVPUSH ONETIME ONE Stop: 01/30/17 16:25 Last Admin: 01/30/17 16:35 Dose: 4 mg *Q Meaningful Use (DIS) - VTE *Q VTE Criteria *Q: - Stroke *Q Stroke Criteria *Q: - AMI *Q AMI Criteria *Q:
[2017-01-31] MEDS ORDERED: HYDROmorphone 1 MG/ML Syringe IVPUSH ONE (12:07)
[2017-01-31] MEDS ORDERED: Acetaminophen 500 MG Tab PO PRN (14:00)
[2017-01-31 19:44] VITALS: BP 115/67
[2017-02-01] MEDS ORDERED: Polyethylene Glycol 3350 Powder 17 GM Packet PO SCH (09:00)
== END 2017-01-31 12:15 | DRG 720 ==
LOC: MW.ED 16:14 → MW.MS 18:50
PROVIDERS: ADMIT Internal Medicine; ATTEND Internal Medicine
DX: A41.9 Sepsis, unspecified organism (principal); J85.1 Abscess of lung with pneumonia; L76.34 Postprocedural seroma of skin and subcutaneous tissue following other procedure; Y83.9 Surgical procedure, unspecified as the cause of abnormal reaction of the patient, or of later complication, without mention of misadventure at the time of the procedure; E87.1 Hypo-osmolality and hyponatremia; C34.90 Malignant neoplasm of unspecified part of unspecified bronchus or lung; D64.9 Anemia, unspecified; D72.829 Elevated white blood cell count, unspecified; D47.3 Essential (hemorrhagic) thrombocythemia; R06.82 Tachypnea, not elsewhere classified; R00.0 Tachycardia, unspecified; R74.0 Nonspecific elevation of levels of transaminase and lactic acid dehydrogenase [LDH]; Z79.899 Other long term (current) drug therapy; F17.200 Nicotine dependence, unspecified, uncomplicated
CPT/HCPCS: 36415; 36430; 71020; 71020-26; 71260; 71260-26; 80048; 80053; 81001; 82150; 82728; 83550; 83605; 83690; 85025; 85045; 86850; 86900; 86901; 86920; 86921; 86922; 87040; 87086; 96361; 96365; 96375; 99285; 99285-25; A9270-GY; C9113; J1170; J1650; J1885; J1956; J2405; J2543; J3370; J7040; J7050; P9016; Q9967

== ENCOUNTER 2017-10-12 13:59 | Emergency (ER) | payer BC ==
[2017-10-12] MEDS ORDERED: Albuterol/Ipratropium 3.0-0.5 MG/3 ML Neb Soln NEB ONE (14:02)
[2017-10-12] MEDS ORDERED: Sodium Chloride 0.9% 1,000 ML IV ONE (14:03)
--- NOTE | 2017-10-12 14:13 | EDM.PDOC ---
ED HPI GENERAL MEDICAL PROBLEM - General Chief Complaint: Skin Complaint Stated Complaint: HEART ISSUES Time Seen by Provider: 10/12/17 14:05 Source of Information: Reports: Patient History Limitations: Reports: No Limitations - History of Present Illness INITIAL COMMENTS - FREE TEXT/NARRATIVE: HISTORY AND PHYSICAL: History of present illness: Patient is a 57-year-old male who presents to the emergency room with complaints of skin erythema and tenderness to the right upper chest wall. And was in oncology receiving chemotherapy when he mentioned to the staff that he had redness to his right upper chest for the last 2 days. I did consult the oncologist via phone who recommended he be evaluated in the emergency room. Patient also has had complaints of cough and sinus congestion for the last 3 days, stating "I'm just getting a cold". Denies any fever, chills, chest pain, shortness of breath. He denies any abdominal pain, nausea, vomiting, diarrhea or constipation. She was diagnosed with squamous cell lung cancer in 2016. Has received chemotherapy and radiation in the past. The stating oncology services for chemotherapy. Does have port access to the left upper chest wall. Review of systems: As per history of present illness and below otherwise all systems reviewed and negative. Past medical history: As per history of present illness and as reviewed below otherwise noncontributory. Surgical history: As per history of present illness and as reviewed below otherwise noncontributory. Social history: No reported history of drug or alcohol abuse. Family history: As per history of present illness and as reviewed below otherwise noncontributory. Physical exam: General: Well-developed and well-nourished 57-year-old male. Alert and oriented. Nontoxic appearing and in no acute distress. HEENT: Atraumatic, normocephalic, pupils equal and reactive bilaterally, negative for conjunctival pallor or scleral icterus, mucous membranes moist, throat clear, neck supple, nontender, trachea midline. No drooling or trismus noted. No meningeal signs Lungs: Diminished left posterior base otherwise clear to auscultation, breath sounds equal bilaterally, chest nontender. Healed scar noted to right posterior chest wall. Dry non-productive cough. Heart: S1S2, regular rate and rhythm without overt murmur Abdomen: Soft, nondistended, nontender. Negative for masses or hepatosplenomegaly. Negative for costovertebral tenderness. Pelvis: Stable nontender. Genitourinary: Deferred. Rectal: Deferred. Skin: Large area of erythema noted to the right pectoral/subclavian area. This was outlined with a surgical marker. Warm to touch. Mild tenderness. Otherwise skin is intact, warm, dry. No lesions or rashes noted. Extremities: Atraumatic, moves all extremities per self without difficulty or deficits. He is negative for cords or calf pain. Neurovascular unremarkable. Neuro: Awake, alert, oriented. Cranial nerves II through XII unremarkable. Cerebellum unremarkable. Motor and sensory unremarkable throughout. Exam nonfocal. Notes: Lab work was done on 10/11/17. WBC is 9.05. Today WBC is 10. No other significant findings on lab work. CXR shows a large right apical very mass which is not significantly changed. No acute cardiopulmonary findings noted. Discussed with patient admission, he declines. Stating he is comfortable going home on outpatient antibiotics. He sees Dr. Fred Knight at [facility]. We will call their clinic to set up a follow-up appointment to have him monitored and reevaluated. Will give him 1gm of Rocephin here, script for Bactrim DS and discharged with close follow-up with his primary care provider. Diagnostics: CBC, CMP, blood cultures, chest x-ray, EKG Therapeutics: NS, Rocephin Impression: Cellulitis, right chest wall Plan: 1. Please take your antibiotic as prescribed. Tylenol and/or Ibuprofen as needed for pain/fever management. 2. Continue to monitor for signs of improvement. Area of redness has been outlined with a surgical marker. If symptoms should worsen please return to the emergency room. 3. A follow-up appointment has been made for you with Dr. Fred Knight on 10/16/2017 at 3pm at [facility]. 4. Return to the ED as needed and as discussed. Definitive disposition and diagnosis as appropriate pending reevaluation and review of above. Duration: Day(s): Location: Reports: Chest right shoulder Pain Score (Numeric/FACES): 8 - Related Data Allergies Allergy/AdvReac Type Severity Reaction Status Date / Time No Known Allergies Allergy Verified 10/12/17 14:01 Home Meds: Home Meds Albuterol [Ventolin HFA] 2 puff INH BID 10/12/17 [History] Aspirin 325 mg PO DAILY 10/12/17 [History] Benzonatate 100 mg PO TID 10/12/17 [History] Calcium Carbonate/Vitamin D3 [Calcium 500-Vit D3 600 Tablet] 1 tab PO DAILY [History] Codeine/guaiFENesin [Robitussin AC] 5 ml PO Q4HR 10/12/17 [History] Docusate Sodium [Colace] 300 mg PO TID 10/12/17 [History] Dronabinol [Marinol] 1 cap PO DAILY 10/12/17 [History] Ferrous Sulfate 324 mg PO DAILY 10/12/17 [History] Gabapentin [Gralise] 1,200 mg PO BID 10/12/17 [History] HYDROmorphone [Dilaudid] 6 mg PO DAILY 10/12/17 [History] Magnesium Oxide 1,500 mg PO BID 10/12/17 [History] Ondansetron [Ondansetron ODT] 8 mg PO Q8HR 10/12/17 [History] Polyethylene Glycol 3350 1 gm PO DAILY 10/12/17 [History] Prochlorperazine [Compazine] 10 mg PO TID 10/12/17 [History] Zolpidem [Ambien] 5 mg PO BEDTIME 10/12/17 [History] oxyCODONE 60 mg PO Q12HR 10/12/17 [History] Past Medical History HEENT History: Reports: Other (See Below) Other HEENT History: wears glasses Cardiovascular History: Reports: High Cholesterol, Hypertension, PVD, Other ( See Below) Respiratory History: Reports: Other (See Below) Other Respiratory History: 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) Gastrointestinal History: Reports: None Genitourinary History: Reports: None Musculoskeletal History: Reports: Fracture, Other (See Below) Other Musculoskeletal History: cracked bone in right wrist Neurological History: Reports: CVA, Other (See Below) Other Neuro History: stroke 3 yrs ago, peripheral vascular disease Psychiatric History: Reports: None Endocrine/Metabolic History: Reports: None Hematologic History: Reports: None Immunologic History: Reports: None Oncologic (Cancer) History: Reports: Lung Dermatologic History: Reports: None - Infectious Disease History Infectious Disease History: Reports: Chicken Pox, Mumps - Past Surgical History Cardiovascular Surgical History: Reports: Carotid Endarterectomy Musculoskeletal Surgical History: Reports: Carpal Tunnel Social & Family History - Family History Family Medical History: Noncontributory Cardiac: Reports: Heart Failure Musculoskeletal: Reports: RA Endocrine/Metabolic: Reports: Other (See Below) Other Endocrine/Metabolic Family History: diabetes, type unknown Oncologic: Reports: Esophageal - Tobacco Use Smoking Status *Q: Current Every Day Smoker Years of Tobacco use: 40 Packs/Tins Daily: 0.4 Used Tobacco, but Quit: No Second Hand Smoke Exposure: No - Caffeine Use Caffeine Use: Reports: None - Alcohol Use Days Per Week of Alcohol Use: 5 Number of Drinks Per Day: 4 Total Drinks Per Week: 20 - Recreational Drug Use Recreational Drug Use: No Recreational Drug Type: Reports: Marijuana/Hashish Recreational Drug Use Frequency: Socially ED ROS GENERAL - Review of Systems Review Of Systems: ROS reveals no pertinent complaints other than HPI. ED EXAM, SKIN/RASH Exam: See Below (See dictation) Course - Vital Signs Last Recorded V/S: Last Vital Signs Temp 98.1 F 10/12/17 14:01 Pulse 115 H 10/12/17 14:01 Resp 18 10/12/17 14:01 BP 182/106 H 10/12/17 14:01 Pulse Ox 100 10/12/17 14:01 - Orders/Labs/Meds Orders: Active Orders 24 hr Category Date Time Status EKG Documentation Completion [RC] STAT Care 10/12/17 14:03 Active RT Aerosol Therapy [RC] ASDIRECTED Care 10/12/17 14:03 Active CULTURE BLOOD [BC] Stat Lab 10/12/17 14:05 Received CULTURE BLOOD [BC] Stat Lab 10/12/17 14:20 Received Sodium Chloride 0.9% [Normal Saline] 1,000 ml Med 10/12/17 14:03 Active IV STAT Blood Culture x2 Reflex Set [OM.PC] Stat Oth 10/12/17 14:03 Ordered Medication Orders Sodium Chloride (Normal Saline) 1,000 mls @ 125 mls/hr IV STAT ONE Stop: 10/12/17 22:02 Last Admin: 10/12/17 14:14 Dose: 125 mls/hr Labs: Laboratory Tests 10/12/17 10/12/17 10/12/17 Range/Units 14:05 14:05 14:05 WBC 10.10 (4.0-11.0) K/uL RBC 3.81 L (4.50-5.90) M/uL Hgb 9.7 L (13.0-17.0) g/dL Hct 30.5 L (38.0-50.0) % MCV 80.1 (80.0-98.0) fL MCH 25.5 L (27.0-32.0) pg MCHC 31.8 (31.0-37.0) g/dL RDW Std Deviation 47.5 (28.0-62.0) fl RDW Coeff of An 16 H (11.0-15.0) % Plt Count 562 H (150-400) K/uL MPV 8.20 (7.40-12.00) fL Neut % (Auto) 69.4 (48.0-80.0) % Lymph % (Auto) 15.5 L (16.0-40.0) % [place] % (Auto) 10.0 (0.0-15.0) % Eos % (Auto) 4.9 (0.0-7.0) % Baso % (Auto) 0.2 (0.0-1.5) % Neut # (Auto) 7.0 H (1.4-5.7) K/uL Lymph # (Auto) 1.6 (0.6-2.4) K/uL [place] # (Auto) 1.0 H (0.0-0.8) K/uL Eos # (Auto) 0.5 (0.0-0.7) K/uL Baso # (Auto) 0.0 (0.0-0.1) K/uL Nucleated RBC % 0.0 /100WBC Nucleated RBCs # 0 K/uL Lactate 0.9 (0.20-2.00) mmol/L Sodium 129 L (136-148) mmol/L Potassium 3.9 (3.5-5.1) mmol/L Chloride 94 L (98-107) mmol/L Carbon Dioxide 27.6 (21.0-32.0) mmol/L BUN 13 (7.0-18.0) mg/dL Creatinine 0.6 L (0.8-1.3) mg/dL Est Cr Clr Drug Dosing 110.56 mL/min Estimated GFR (MDRD) > 60.0 ml/min Glucose 118 H (74-106) mg/dL Calcium 8.7 (8.5-10.1) mg/dL Total Bilirubin 0.2 (0.2-1.0) mg/dL AST 35 (15-37) IU/L ALT 63 (14-63) IU/L Alkaline Phosphatase 518 H (46-116) U/L Total Protein 7.4 (6.4-8.2) g/dL Albumin 2.5 L (3.4-5.0) g/dL Globulin 4.9 H (2.0-3.5) g/dL Albumin/Globulin Ratio 0.5 L (1.3-2.8) Meds: Medications Generic Name Dose Route Start Last Admin Trade Name Freq PRN Reason Stop Dose Admin Sodium Chloride 1,000 mls @ 125 mls/hr 10/12/17 14:03 10/12/17 14:14 Normal Saline IV 10/12/17 22:02 125 mls/hr STAT ONE Administration Discontinued Medications Generic Name Dose Route Start Last Admin Trade Name Freq PRN Reason Stop Dose Admin Albuterol/Ipratropium 3 ml 10/12/17 14:02 10/12/17 14:12 Duoneb 3.0-0.5 Mg/3 Ml NEB 10/12/17 14:03 3 ml ONETIME ONE Administration Ceftriaxone Sodium/Dextrose 1 50 mls @ 100 mls/hr 10/12/17 14:54 10/12/17 15: 47 gm/ Premix IV 10/12/17 15:23 Not Given ONETIME ONE Ceftriaxone Sodium 1,000 mg/ 50 mls @ 100 mls/hr 10/12/17 15:15 10/12/17 15: 25 Sodium Chloride IV 10/12/17 15:44 100 mls/hr ONETIME ONE Administration Departure - Departure Time of Disposition: 15:05 Disposition: Home, Self-Care 01 Clinical Impression: Cellulitis Qualifiers: Site of cellulitis: trunk Site of cellulitis of trunk: chest wall Qualified Code(s): L03.313 - Cellulitis of chest wall - Discharge Information Instructions: Cellulitis, Adult, [id number] Forms: ED Department Discharge Additional Instructions: The following information is given to patients seen in the emergency department who are being discharged to home. This information is to outline your options for follow-up care. We provide all patients seen in our emergency department with a follow-up referral. The need for follow-up, as well as the timing and circumstances, are variable depending upon the specifics of your emergency department visit. If you don't have a primary care physician on staff, we will provide you with a referral. We always advise you to contact your personal physician following an emergency department visit to inform them of the circumstance of the visit and for follow-up with them and/or the need for any referrals to a consulting specialist. The emergency department will also refer you to a specialist when appropriate. This referral assures that you have the opportunity for follow-up care with a specialist. All of these measure are taken in an effort to provide you with optimal care, which includes your follow-up. Under all circumstances we always encourage you to contact your private physician who remains a resource for coordinating your care. When calling for follow-up care, please make the office aware that this follow-up is from your recent emergency room visit. If for any reason you are refused follow-up, please contact the [facility] Emergency Department at and asked to speak to the emergency department charge nurse. [address] [address] 1. Please take your antibiotic as prescribed. Tylenol and/or Ibuprofen as needed for pain/fever management. 2. Continue to monitor for signs of improvement. Area of redness has been outlined with a surgical marker. If symptoms should worsen please return to the emergency room. 3. A follow-up appointment has been made for you with Dr. Fred Knight on 10/16/2017 at 3pm at [facility]. 4. Return to the ED as needed and as discussed. - My Orders Last 24 Hours: My Active Orders 10/12/17 14:03 EKG Documentation Completion [RC] STAT RT Aerosol Therapy [RC] ASDIRECTED Sodium Chloride 0.9% [Normal Saline] 1,000 ml IV STAT Blood Culture x2 Reflex Set [OM.PC] Stat 10/12/17 14:05 CULTURE BLOOD [BC] Stat 10/12/17 14:20 CULTURE BLOOD [BC] Stat - Assessment/Plan Last 24 Hours: My Active Orders 10/12/17 14:03 EKG Documentation Completion [RC] STAT RT Aerosol Therapy [RC] ASDIRECTED Sodium Chloride 0.9% [Normal Saline] 1,000 ml IV STAT Blood Culture x2 Reflex Set [OM.PC] Stat 10/12/17 14:05 CULTURE BLOOD [BC] Stat 10/12/17 14:20 CULTURE BLOOD [BC] Stat
--- NOTE | 2017-10-12 14:41 | CR ---
EXAMINATION: Portable chest radiograph. HISTORY: Shortness of breath. Comparison: CT dated 08/02/2017 FINDINGS: There is a large cavitary masslike area within the region of the right upper lobe, not significantly changed from the prior CT. Left-sided lis catheter noted with tip in the SVC region. The lungs are otherwise clear without focal consolidation. No pleural effusion. Cardiomediastinal silhouette is oth erwise stable. Osseous structures appear unremarkable. IMPRESSION: 1. Large right apical cavitary mass, not significantly changed. Otherwise no acute cardiopulmonary fi ndings.
[2017-10-12] MEDS ORDERED: cefTRIAXone 1 GM in Premix Bag 1 BAG IV ONE (14:54)
[2017-10-12 15:00] LABS: CHLORIDE,CL 94 mmol/L (98-107); SODIUM,NA 129 mmol/L (136-148)
[2017-10-12] MEDS ORDERED: cefTRIAXone 1,000 MG in Sodium Chloride 0.9% 50 ML IV ONE (15:15)
[2017-10-12] MEDS ORDERED: Heparin Sodium 100 Units/ML 3 ML Syringe FLUSH ONE (15:54)
[2017-10-12 16:24] VITALS: BP 136/85
== END 2017-10-12 16:15 | disposition home or self-care (01) ==
LOC: MW.ED 13:59
DX: L03.313 Cellulitis of chest wall (principal); I10 Essential (primary) hypertension; F17.210 Nicotine dependence, cigarettes, uncomplicated; Z79.82 Long term (current) use of aspirin; Z79.899 Other long term (current) drug therapy
CPT/HCPCS: 36415; 71045; 80053; 83605; 85025; 87040; 94640; 96361; 96365; 99284; J0696; J1642; J7040; J7050; 87186

== ENCOUNTER 2017-10-13 14:22 | Emergency (ER) | payer BC ==
[2017-10-13 14:51] VITALS: BP 168/93
--- NOTE | 2017-10-13 15:02 | EDM.PDOC ---
ED HPI GENERAL MEDICAL PROBLEM - General Chief Complaint: General Time Seen by Provider: 10/13/17 14:48 Source of Information: Reports: Patient, Family History Limitations: Reports: No Limitations - History of Present Illness INITIAL COMMENTS - FREE TEXT/NARRATIVE: HISTORY AND PHYSICAL: []57-year-old male was in the emergency department yesterday for a chest cellulitis History of Present Illness: []Patient was called to return to emergency room due to blood culture presenting with gram-positive cocci Review of Systems: As per history of present illness and below otherwise all systems reviewed and negative. Past medical history: As per history of present illness and as reviewed below otherwise noncontributory. Surgical history: As per history of present illness and as reviewed below otherwise noncontributory. Social history: No reported history of drug or alcohol abuse. Family history: As per history of present illness and as reviewed below otherwise noncontributory. Physical exam: Alert and oriented male accompanied by his answering questions appropriately Skin markings show the border of cellulitis yesterday. Area has reduced by half. Erythema continues to be present to right chest. HEENT: Atraumatic, normocehpalic, pupils reactive, negative for conjunctival pallor or scleral icterus, mucous membranes moist, throat clear, neck supple, nontender, trachea midline. Port is present on the left chest no erythema or heat radiating from the site. Lungs: Clear to auscultation, breath sounds equal bilaterally, chest non tender. Heart: S1S2, regular, negative for clicks, rubs, or JVD. Abdomen: Soft, nondistended, nontender. Negative for masses or hepatossplenmegaly. Negative for costovertebral tenderness. Pelvis: Stable nontender. Genitourinary: Deferred. Rectal: Deferred Extremities: Atraumatic, negative for cords or calf pain. Neurovascular unremarkable. Neuro: Awake, alert, oriented. Cranial nerves II through XII unremarkable. Cerebellum unremarkable. Motor and sensory unremarkable throughout. Exam nonfocal. Diagnostics: [CBC lactic acid] Therapeutics: [] Impression: [] Plan: [] Definitive disposition and diagnosis as appropriate pending reevaluation and review of above. Onset: Sudden Location: Reports: Chest Quality: Reports: Same as Previous Episode Severity: Moderate R Shoulder Pain Score (Numeric/FACES): 5 - Related Data Allergies Allergy/AdvReac Type Severity Reaction Status Date / Time No Known Allergies Allergy Verified 10/13/17 14:31 Home Meds: Home Meds Albuterol [Ventolin HFA] 2 puff INH BID 10/12/17 [History] Aspirin 81 mg PO DAILY 10/12/17 [History] Benzonatate 100 mg PO TID PRN 10/12/17 [History] Calcium Carbonate/Vitamin D3 [Calcium 500-Vit D3 600 Tablet] 1 tab PO DAILY [History] Docusate Sodium [Colace] 300 mg PO TID PRN 10/12/17 [History] Dronabinol [Marinol] 1 cap PO DAILY 10/12/17 [History] Ferrous Sulfate 324 mg PO BID 10/12/17 [History] Gabapentin [Gralise] 1,200 mg PO BID 10/12/17 [History] HYDROmorphone [Dilaudid] 6 mg PO DAILY 10/12/17 [History] Magnesium Oxide 1,500 mg PO BID 10/12/17 [History] Ondansetron [Ondansetron ODT] 8 mg PO Q8HR PRN 10/12/17 [History] Polyethylene Glycol 3350 1 gm PO DAILY PRN 10/12/17 [History] Prochlorperazine [Compazine] 10 mg PO TID PRN 10/12/17 [History] Zolpidem [Ambien] 5 mg PO BEDTIME 10/12/17 [History] oxyCODONE 60 mg PO Q12HR 10/12/17 [History] Past Medical History HEENT History: Reports: Other (See Below) Other HEENT History: wears glasses Cardiovascular History: Reports: High Cholesterol, Hypertension, PVD, Other ( See Below) Respiratory History: Reports: Other (See Below) Other Respiratory History: 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) Gastrointestinal History: Reports: None Genitourinary History: Reports: None Musculoskeletal History: Reports: Fracture, Other (See Below) Other Musculoskeletal History: cracked bone in right wrist, shoulder pain Neurological History: Reports: CVA, Other (See Below) Other Neuro History: stroke 3 yrs ago, peripheral vascular disease Psychiatric History: Reports: None Endocrine/Metabolic History: Reports: None Hematologic History: Reports: None Immunologic History: Reports: None Oncologic (Cancer) History: Reports: Lung Dermatologic History: Reports: None - Infectious Disease History Infectious Disease History: Reports: Chicken Pox, Shingles - Past Surgical History Head Surgeries/Procedures: Reports: None Cardiovascular Surgical History: Reports: Carotid Endarterectomy Musculoskeletal Surgical History: Reports: Carpal Tunnel Social & Family History - Family History Family Medical History: Noncontributory Cardiac: Reports: Heart Failure Musculoskeletal: Reports: RA Endocrine/Metabolic: Reports: Other (See Below) Other Endocrine/Metabolic Family History: diabetes, type unknown Oncologic: Reports: Esophageal - Tobacco Use Smoking Status *Q: Current Every Day Smoker Years of Tobacco use: 30 Packs/Tins Daily: 0.5 Used Tobacco, but Quit: No Second Hand Smoke Exposure: No - Caffeine Use Caffeine Use: Reports: None - Alcohol Use Days Per Week of Alcohol Use: 5 Number of Drinks Per Day: 4 Total Drinks Per Week: 20 - Recreational Drug Use Recreational Drug Use: No Recreational Drug Type: Reports: Marijuana/Hashish Recreational Drug Use Frequency: Socially ED ROS GENERAL - Review of Systems Review Of Systems: ROS reveals no pertinent complaints other than HPI. ED EXAM, GENERAL - Physical Exam Exam: See Below Course - Vital Signs Last Recorded V/S: Last Vital Signs Temp 36.6 C 10/13/17 14:28 Pulse 106 H 10/13/17 14:28 Resp 18 10/13/17 14:28 BP 168/93 H 10/13/17 14:28 Pulse Ox 94 L 10/13/17 14:28 - Orders/Labs/Meds Orders: Active Orders 24 hr Category Date Time Status CBC WITH AUTO DIFF [HEME] Stat Lab 10/13/17 14:47 Ordered LACTATE WITH REFLEX [BG] Stat Lab 10/13/17 14:48 Ordered Departure - Departure Time of Disposition: 15:19 Disposition: Home, Self-Care 01 Condition: Good Clinical Impression: Cellulitis Qualifiers: Site of cellulitis: trunk Site of cellulitis of trunk: chest wall Qualified Code(s): L03.313 - Cellulitis of chest wall - Discharge Information Instructions: Cellulitis, Adult Referrals: PCP,None [Primary Care Provider] - Additional Instructions: The following information is given to patients seen in the emergency department who are being discharged to home. This information is to outline your options for follow-up care. We provide all patients seen in our emergency department with a follow-up referral. The need for follow-up, as well as the timing and circumstances, are variable depending upon the specifics of your emergency department visit. If you don't have a primary care physician on staff, we will provide you with a referral. We always advise you to contact your personal physician following an emergency department visit to inform them of the circumstance of the visit and for follow-up with them and/or the need for any referrals to a consulting specialist. The emergency department will also refer you to a specialist when appropriate. This referral assures that you have the opportunity for followup care with a specialist. All of these measure are taken in an effort to provide you with optimal care, which includes your followup. Under all circumstances we always encourage you to contact your private physician who remains a resource for coordinating your care. When calling for followup care, please make the office aware that this follow-up is from your recent emergency room visit. If for any reason you are refused follow-up, please contact the [facility] emergency department at and asked to speak to the emergency department charge nurse. Your cellulitis looks to be improved since being seen yesterday. Continue with the current medication that you have been given Return to the emergency department should his symptoms worsen as discussed - My Orders Last 24 Hours: My Active Orders 10/13/17 14:47 CBC WITH AUTO DIFF [HEME] Stat 10/13/17 14:48 LACTATE WITH REFLEX [BG] Stat - Assessment/Plan Last 24 Hours: My Active Orders 10/13/17 14:47 CBC WITH AUTO DIFF [HEME] Stat 10/13/17 14:48 LACTATE WITH REFLEX [BG] Stat
== END 2017-10-13 16:00 | disposition home or self-care (01) ==
LOC: MW.ED 14:22
DX: L03.313 Cellulitis of chest wall (principal); E78.00 Pure hypercholesterolemia, unspecified; I10 Essential (primary) hypertension; F17.210 Nicotine dependence, cigarettes, uncomplicated; Z79.82 Long term (current) use of aspirin; Z79.899 Other long term (current) drug therapy
CPT/HCPCS: 36415; 83605; 85025; 99282

== ENCOUNTER 2017-10-14 09:51 | Emergency (ER) | payer BC ==
[2017-10-14] MEDS ORDERED: Sodium Chloride 0.9% 1,000 ML IV ONE (10:03)
--- NOTE | 2017-10-14 10:04 | EDM.PDOC ---
ED HPI GENERAL MEDICAL PROBLEM - General Chief Complaint: Upper Extremity Injury/Pain Stated Complaint: AMBULANCE Time Seen by Provider: 10/14/17 10:02 Source of Information: Reports: Patient History Limitations: Reports: No Limitations - History of Present Illness INITIAL COMMENTS - FREE TEXT/NARRATIVE: HISTORY AND PHYSICAL: []57-year-old male who is been seen for the last 2 days in the emergency department has cellulitis to his anterior chest History of Present Illness: []Blood pressure is elevated complaining of chest wall discomfort Patient is an oncology patient does have a port on the left side Patient has history of herpes zoster 2 months ago, slight rash still noted on the T5 dermatome Anterior chest. Review of Systems: As per history of present illness and below otherwise all systems reviewed and negative. Past medical history: As per history of present illness and as reviewed below otherwise noncontributory. Surgical history: As per history of present illness and as reviewed below otherwise noncontributory. Social history: No reported history of drug or alcohol abuse. Family history: As per history of present illness and as reviewed below otherwise noncontributory. Physical exam: Patient response to questions being asked eyes opened and he answered questions appropriately/closed during examination . HEENT: Atraumatic, normocehpalic, pupils reactive, negative for conjunctival pallor or scleral icterus, mucous membranes moist, throat clear, neck supple, nontender, trachea midline. Lungs: Coarse to auscultation, breath sounds equal bilaterally, chest non tender. Right sided rhonchi Heart: S1S2, regular, negative for clicks, rubs, or JVD. Abdomen: Soft, nondistended, nontender. Negative for masses or hepatossplenmegaly. Negative for costovertebral tenderness. Pelvis: Stable nontender. Genitourinary: Deferred. Rectal: Deferred Extremities: Atraumatic, negative for cords or calf pain. Neurovascular unremarkable. Neuro: Awake, alert, oriented. Cranial nerves II through XII unremarkable. Cerebellum unremarkable. Motor and sensory unremarkable throughout. Exam nonfocal. Patient's pain level has improved slightly from the morphine 2 mg IV to 5/10 and we'll give an additional 2 mg During reevaluation patient was asked to open his eyes obvious facial droop was present weighted weakness to left hand and left leg. stroke code was called. Patient had numbness to both left extremities. Head CT was negative for intracranial bleed. Chest x-ray is unchanged from previous documentation. 20 minutes patient was slowly improving with his symptoms. Spoke with Dr. Gonsales to admit patient. Patient Dr. Gonsales here to xamine patient. Verification of scheduling reveals that the neurologist is not on campus this next week. Patient family are agreeable in transferring this patient for neurology followup. Discussed this patient with Dr. Whalen, emergency room physician at [facility], he has accepted this patient for transfer. Transfer forms have been completed. Head CT and chest xray pushed to [facility] Diagnostics: []CBC CMP lactic acid chest x-ray Therapeutics: []1 L normal saline Vancomycin Zosyn asa Impression: TIA rule out CVA []Chest wall cellulitis, failed outpatient treatment Plan: []Transfer per helicopter to [facility] Definitive disposition and diagnosis as appropriate pending reevaluation and review of above. Onset: Sudden Duration: Day(s): (3) Location: Reports: Chest Quality: Reports: Same as Previous Episode Severity: Severe Improves with: Reports: None Worsens with: Reports: None right shoulder Pain Score (Numeric/FACES): 6 - Related Data Allergies Allergy/AdvReac Type Severity Reaction Status Date / Time No Known Allergies Allergy Verified 10/14/17 09:56 Home Meds: Home Meds Albuterol [Ventolin HFA] 2 puff INH BID 10/12/17 [History] Aspirin 81 mg PO DAILY 10/12/17 [History] Benzonatate 100 mg PO TID PRN 10/12/17 [History] Calcium Carbonate/Vitamin D3 [Calcium 500-Vit D3 600 Tablet] 1 tab PO DAILY [History] Docusate Sodium [Colace] 300 mg PO TID PRN 10/12/17 [History] Dronabinol [Marinol] 1 cap PO DAILY 10/12/17 [History] Ferrous Sulfate 324 mg PO BID 10/12/17 [History] Gabapentin [Gralise] 1,200 mg PO BID 10/12/17 [History] HYDROmorphone [Dilaudid] 6 mg PO DAILY 10/12/17 [History] Magnesium Oxide 1,500 mg PO BID 10/12/17 [History] Ondansetron [Ondansetron ODT] 8 mg PO Q8HR PRN 10/12/17 [History] Polyethylene Glycol 3350 1 gm PO DAILY PRN 10/12/17 [History] Prochlorperazine [Compazine] 10 mg PO TID PRN 10/12/17 [History] Zolpidem [Ambien] 5 mg PO BEDTIME 10/12/17 [History] oxyCODONE 60 mg PO Q12HR 10/12/17 [History] Past Medical History HEENT History: Reports: Other (See Below) Other HEENT History: wears glasses Cardiovascular History: Reports: High Cholesterol, Hypertension, PVD, Other ( See Below) Respiratory History: Reports: Other (See Below) Other Respiratory History: 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) Gastrointestinal History: Reports: None Genitourinary History: Reports: None Musculoskeletal History: Reports: Fracture, Other (See Below) Other Musculoskeletal History: cracked bone in right wrist, shoulder pain Neurological History: Reports: CVA, Other (See Below) Other Neuro History: stroke 3 yrs ago, peripheral vascular disease Psychiatric History: Reports: None Endocrine/Metabolic History: Reports: None Hematologic History: Reports: None Immunologic History: Reports: None Oncologic (Cancer) History: Reports: Lung Dermatologic History: Reports: None - Infectious Disease History Infectious Disease History: Reports: Chicken Pox, Shingles - Past Surgical History Head Surgeries/Procedures: Reports: None Cardiovascular Surgical History: Reports: Carotid Endarterectomy GI Surgical History: Reports: None Male Surgical History: Reports: None Musculoskeletal Surgical History: Reports: Carpal Tunnel Social & Family History - Family History Family Medical History: Noncontributory Cardiac: Reports: Heart Failure Musculoskeletal: Reports: RA Endocrine/Metabolic: Reports: Other (See Below) Other Endocrine/Metabolic Family History: diabetes, type unknown Oncologic: Reports: Esophageal - Tobacco Use Smoking Status *Q: Current Every Day Smoker Years of Tobacco use: 40 Packs/Tins Daily: 0.5 Used Tobacco, but Quit: No Second Hand Smoke Exposure: Yes - Caffeine Use Caffeine Use: Reports: None - Alcohol Use Days Per Week of Alcohol Use: 5 Number of Drinks Per Day: 4 Total Drinks Per Week: 20 - Recreational Drug Use Recreational Drug Use: No Recreational Drug Type: Reports: Marijuana/Hashish Recreational Drug Use Frequency: Socially Review of Systems - Review of Systems Review Of Systems: ROS reveals no pertinent complaints other than HPI. ED EXAM, GENERAL - Physical Exam Exam: See Below (See dictation) Course - Vital Signs Last Recorded V/S: Last Vital Signs Temp 36.4 C 10/14/17 09:57 Pulse 120 H 10/14/17 11:50 Resp 20 10/14/17 11:50 BP 182/106 H 10/14/17 11:50 Pulse Ox 88 L 10/14/17 11:50 - Orders/Labs/Meds Orders: Active Orders 24 hr Category Date Time Status EKG 12 Lead [EKG Documentation Completion] [RC] STAT Care 10/14/17 11:24 Active Hemoccult [Fecal Occult Blood Collection] [RC] Care 10/14/17 10:47 Active ASDIRECTED Chest 1V Frontal [CR] Stat Exams 10/14/17 10:07 Taken Head wo Cont [CT] Stat Exams 10/14/17 11:24 Taken CULTURE BLOOD [BC] Stat Lab 10/14/17 10:18 Received CULTURE BLOOD [BC] Stat Lab 10/14/17 10:37 Received Piperacillin/Tazobactam [Piperacil-Tazobact] 3.375 gm Med 10/14/17 11:00 Active Sodium Chloride 0.9% [Normal Saline] 50 ml IV Q8H Sodium Chloride 0.9% [Normal Saline] 1,000 ml Med 10/14/17 10:03 Active IV STAT Blood Culture x2 Reflex Set [OM.PC] Stat Oth 10/14/17 10:11 Ordered Medication Orders Sodium Chloride (Normal Saline) 1,000 mls @ 125 mls/hr IV STAT ONE Stop: 10/14/17 18:02 Last Admin: 10/14/17 10:26 Dose: 125 mls/hr Piperacillin Sod/Tazobactam (Sod 3.375 gm/ Sodium Chloride) 50 mls @ 100 mls/ hr IV Q8H [facility] Last Admin: 10/14/17 11:05 Dose: 100 mls/hr Labs: Laboratory Tests 10/14/17 10/14/17 10/14/17 Range/Units 10:18 10:18 10:18 WBC 17.18 H (4.0-11.0) K/uL RBC 4.20 L (4.50-5.90) M/uL Hgb 10.6 L (13.0-17.0) g/dL Hct 32.8 L (38.0-50.0) % MCV 78.1 L (80.0-98.0) fL MCH 25.2 L (27.0-32.0) pg MCHC 32.3 (31.0-37.0) g/dL RDW Std Deviation 46.4 (28.0-62.0) fl RDW Coeff of An 16 H (11.0-15.0) % Plt Count 530 H (150-400) K/uL MPV 7.70 (7.40-12.00) fL Neut % (Auto) 91.6 H (48.0-80.0) % Lymph % (Auto) 3.5 L (16.0-40.0) % Bandera % (Auto) 4.4 (0.0-15.0) % Eos % (Auto) 0.4 (0.0-7.0) % Baso % (Auto) 0.1 (0.0-1.5) % Neut # (Auto) 15.7 H (1.4-5.7) K/uL Lymph # (Auto) 0.6 (0.6-2.4) K/uL Bandera # (Auto) 0.8 (0.0-0.8) K/uL Eos # (Auto) 0.1 (0.0-0.7) K/uL Baso # (Auto) 0.0 (0.0-0.1) K/uL Nucleated RBC % 0.0 /100WBC Nucleated RBCs # 0 K/uL INR Lactate 1.4 (0.20-2.00) mmol/L Sodium 125 L (136-148) mmol/L Potassium 4.1 (3.5-5.1) mmol/L Chloride 92 L (98-107) mmol/L Carbon Dioxide 27.1 (21.0-32.0) mmol/L BUN 9 (7.0-18.0) mg/dL Creatinine 0.7 L (0.8-1.3) mg/dL Est Cr Clr Drug Dosing 94.77 mL/min Estimated GFR (MDRD) > 60.0 ml/min Glucose 155 H (74-106) mg/dL POC Glucose (60-110) mg/dL Calcium 9.2 (8.5-10.1) mg/dL Total Bilirubin 0.3 (0.2-1.0) mg/dL AST 23 (15-37) IU/L ALT 55 (14-63) IU/L Alkaline Phosphatase 543 H (46-116) U/L Troponin I (0.000-0.056) ng/mL Total Protein 8.2 (6.4-8.2) g/dL Albumin 2.8 L (3.4-5.0) g/dL Globulin 5.4 H (2.0-3.5) g/dL Albumin/Globulin Ratio 0.5 L (1.3-2.8) 10/14/17 10/14/17 10/14/17 Range/Units 10:18 10:18 11:23 WBC (4.0-11.0) K/uL RBC (4.50-5.90) M/uL Hgb (13.0-17.0) g/dL Hct (38.0-50.0) % MCV (80.0-98.0) fL MCH (27.0-32.0) pg MCHC (31.0-37.0) g/dL RDW Std Deviation (28.0-62.0) fl RDW Coeff of An (11.0-15.0) % Plt Count (150-400) K/uL MPV (7.40-12.00) fL Neut % (Auto) (48.0-80.0) % Lymph % (Auto) (16.0-40.0) % Bandera % (Auto) (0.0-15.0) % Eos % (Auto) (0.0-7.0) % Baso % (Auto) (0.0-1.5) % Neut # (Auto) (1.4-5.7) K/uL Lymph # (Auto) (0.6-2.4) K/uL Bandera # (Auto) (0.0-0.8) K/uL Eos # (Auto) (0.0-0.7) K/uL Baso # (Auto) (0.0-0.1) K/uL Nucleated RBC % /100WBC Nucleated RBCs # K/uL INR 1.11 Lactate (0.20-2.00) mmol/L Sodium (136-148) mmol/L Potassium (3.5-5.1) mmol/L Chloride (98-107) mmol/L Carbon Dioxide (21.0-32.0) mmol/L BUN (7.0-18.0) mg/dL Creatinine (0.8-1.3) mg/dL Est Cr Clr Drug Dosing mL/min Estimated GFR (MDRD) ml/min Glucose (74-106) mg/dL POC Glucose 139 H (60-110) mg/dL Calcium (8.5-10.1) mg/dL Total Bilirubin (0.2-1.0) mg/dL AST (15-37) IU/L ALT (14-63) IU/L Alkaline Phosphatase (46-116) U/L Troponin I 0.124 H* (0.000-0.056) ng/mL Total Protein (6.4-8.2) g/dL Albumin (3.4-5.0) g/dL Globulin (2.0-3.5) g/dL Albumin/Globulin Ratio (1.3-2.8) Meds: Medications Generic Name Dose Route Start Last Admin Trade Name Freq PRN Reason Stop Dose Admin Sodium Chloride 1,000 mls @ 125 mls/hr 10/14/17 10:03 10/14/17 10:26 Normal Saline IV 10/14/17 18:02 125 mls/hr STAT ONE Administration Piperacillin Sod/Tazobactam 50 mls @ 100 mls/hr 10/14/17 11:00 10/14/17 11:05 Sod 3.375 gm/ Sodium Chloride IV 100 mls/hr Q8H CARTER Administration Discontinued Medications Generic Name Dose Route Start Last Admin Trade Name Freq PRN Reason Stop Dose Admin Aspirin 324 mg 10/14/17 12:08 10/14/17 12:16 Aspirin PO 10/14/17 12:09 324 mg ONETIME ONE Administration Vancomycin HCl 1 gm/ Sodium 250 mls @ 250 mls/hr 10/14/17 10:48 10/14/17 11: 59 Chloride IV 10/14/17 11:47 250 mls/hr ONETIME ONE Administration Morphine Sulfate 4 mg 10/14/17 10:10 10/14/17 10:32 Morphine IVPUSH 10/14/17 10:11 Not Given ONETIME ONE Morphine Sulfate 2 mg 10/14/17 10:10 10/14/17 10:29 Morphine IVPUSH 10/14/17 10:11 2 mg ONETIME ONE Administration Morphine Sulfate 2 mg 10/14/17 10:44 10/14/17 10:54 Morphine IVPUSH 10/14/17 10:45 2 mg ONETIME ONE Administration Morphine Sulfate 2 mg 10/14/17 12:08 10/14/17 12:16 Morphine IVPUSH 10/14/17 12:09 2 mg ONETIME ONE Administration Departure - Departure Time of Disposition: 12:47 Disposition: DC/Tfer to Acute Hospital 02 Condition: Fair Clinical Impression: TIA (transient ischemic attack) Qualifiers: Transient cerebral ischemia type: unspecified Qualified Code(s): G45.9 - Transient cerebral ischemic attack, unspecified - Discharge Information Referrals: PCP,None [Primary Care Provider] - Forms: ED Department Discharge - My Orders Last 24 Hours: My Active Orders 10/14/17 10:03 Sodium Chloride 0.9% [Normal Saline] 1,000 ml IV STAT 10/14/17 10:07 Chest 1V Frontal [CR] Stat 10/14/17 10:11 Blood Culture x2 Reflex Set [OM.PC] Stat 10/14/17 10:18 CULTURE BLOOD [BC] Stat 10/14/17 10:37 CULTURE BLOOD [BC] Stat 10/14/17 10:47 Hemoccult [Fecal Occult Blood Collection] [RC] ASDIRECTED 10/14/17 11:00 Piperacillin/Tazobactam [Piperacil-Tazobact] 3.375 gm Sodium Chloride 0.9% [ Normal Saline] 50 ml IV Q8H 10/14/17 11:24 EKG 12 Lead [EKG Documentation Completion] [] STAT Head wo Cont [CT] Stat - Assessment/Plan Last 24 Hours: My Active Orders 10/14/17 10:03 Sodium Chloride 0.9% [Normal Saline] 1,000 ml IV STAT 10/14/17 10:07 Chest 1V Frontal [CR] Stat 10/14/17 10:11 Blood Culture x2 Reflex Set [OM.PC] Stat 10/14/17 10:18 CULTURE BLOOD [BC] Stat 10/14/17 10:37 CULTURE BLOOD [BC] Stat 10/14/17 10:47 Hemoccult [Fecal Occult Blood Collection] [RC] ASDIRECTED 10/14/17 11:00 Piperacillin/Tazobactam [Piperacil-Tazobact] 3.375 gm Sodium Chloride 0.9% [ Normal Saline] 50 ml IV Q8H 10/14/17 11:24 EKG 12 Lead [EKG Documentation Completion] [RC] STAT Head wo Cont [CT] Stat
[2017-10-14] MEDS ORDERED: Morphine 4 MG/ML Syringe IVPUSH ONE ×4 (10:10→12:08)
[2017-10-14 10:52] LABS: CHLORIDE,CL 92 mmol/L (98-107); SODIUM,NA 125 mmol/L (136-148)
[2017-10-14] MEDS ORDERED: Piperacillin/Tazobactam 3.375 GM in Sodium Chloride 0.9% 50 ML IV SCH (11:00)
[2017-10-14] MEDS ORDERED: Aspirin 81 MG Tab.Chew PO ONE (12:08)
[2017-10-14 12:48] VITALS: BP 197/117
--- NOTE | 2017-10-16 10:39 | CT ---
EXAM DATE: 10/14/17 PATIENT'S AGE: 57 Patient: JOEL MCDONALD Facility: [place], [place] Site . Site : 1960 Study: CT Head [id number]/21/2018 11:33:29 AM Ordering Physician: Doctor Roldan Final Report: Stroke protocol. Noncontrast head CT scan no comparison studies are available. FINDINGS: Axial noncontrast images through the brain parenchyma demonstrates no acute intracranial hemorrhage or mass. No midline shift. No abnormal extra-axial air fluid collections seen. Fluid-level in the right sphenoid sinus. Visualized paranasal sinuses mastoid air cells skull scalp appear otherwise unremarkable IMPRESSION: 1. No acute intracranial hemorrhage or mass. 2. Right sphenoid sinus disease. Please note that all CT scans at this facility use dose modulation, iterative reconstruction, and/or weight-based dosing when appropriate to reduce radiation dose to as low as reasonably achievable. Dictated by Francie Edge MD @ Oct 14 2017 11:44AM (Electronic Signature) Report Signed by Proxy. [email or web address]
--- NOTE | 2017-10-16 10:40 | CR ---
EXAM DATE: 10/14/17 PATIENT'S AGE: 57 Patient: JOEL MCDONALD Facility: [place], [place] Site . Site : 1960 Study: XRay Chest [id number]/21/2018 11:33:57 AM Ordering Physician: Doctor Roldan Final Report: HISTORY: Stroke protocol. TECHNIQUE: One view of the chest. COMPARISON: 10/12/2017. FINDINGS: Left sided Port-A-Cath as before with catheter terminating within the SVC. No change in cavitary process at the right lung apex with thick irregular wall. This could be infectious or neoplastic. The left lung appears clear of focal infiltrate. There is no pneumothorax or pleural effusion. Cardiac size is stable. IMPRESSION: No change in cavitary process involving the right upper chest. Dictated by Zeke Conner MD @ 10/14/2017 11:50:28 AM Dictated by: Zeke Conner MD @ 10/14/2017 11:50:31 (Electronic Signature) Report Signed by Proxy. SANDRA
== END 2017-10-14 13:25 ==
LOC: MW.ED 09:51
DX: L03.313 Cellulitis of chest wall (principal); G45.9 Transient cerebral ischemic attack, unspecified; F17.210 Nicotine dependence, cigarettes, uncomplicated; E78.00 Pure hypercholesterolemia, unspecified; Z79.82 Long term (current) use of aspirin; Z79.899 Other long term (current) drug therapy
CPT/HCPCS: 36415; 70450; 71045; 80053; 82962; 83605; 84484; 85025; 85610; 87040; 93005; 96361; 96365; 96367; 96375; 96376; 99285; A9270; J2270; J2543; J3370; J7040; J7050; 99283